=== PATIENT | female | born 1945 | race Caucasian/White ===

== ENCOUNTER → 2018-01-23 11:30 | Outpatient (CLI) | payer MEDICARE, SELFPAY ==
--- NOTE | 2018-01-23 11:42 | XR_ITS ---
XR lumbar spine min 4V COMPARISON: Lumbar spine 02/20/2016 HISTORY: Low back pain TECHNIQUE: AP lateral and oblique views and spot view lumbosacral junction FINDINGS: There is normal curvature. There are pedicle screws at the L3, L4 and L5 levels. There are no connecting metallic brackets for the screws. There are semiopaque spacers at the L3-4 and L4-5 level. There are stable mild anterolisthesis of L4 on L5 unchanged from previous exam in 2016. There is prominent anterior ossific spurring at the T11-12 and T10-11 levels. The SI joints appear normal. IMPRESSION: Postsurgical changes lower lumbar spine as noted
--- NOTE | 2018-01-23 11:42 | XR_ITS ---
XR hip RT 2-3V w/pelvis COMPARISON: None HISTORY: Right hip pain TECHNIQUE: AP pelvis, cone-down AP and frog views right hip FINDINGS: The iliac bones appear intact. There is minor sclerosis of the right SI joint compared to the left. There is minor sclerosis and spurring of the anterior superior iliac spine bilaterally. There is no significant joint space narrowing of either hip. The right femoral head and neck appear intact. There are no soft tissue calcifications around the right hip. There is osseous whiskering matter greater trochanter of both hips. The symphysis pubis is normal. IMPRESSION: Probable mild right sacroiliitis, no significant osteoarthritis of either hip is seen.
== END ==
PROVIDERS: PCP Nurse Practitioner Family; Visit Provider Nurse Practitioner Family
DX: M54.41 Lumbago with sciatica, right side (principal); M25.551 Pain in right hip
CPT/HCPCS: 72110; 73502

== ENCOUNTER → 2018-03-12 09:57 | Outpatient (POV) | payer MEDICARE, SELFPAY | PROVIDERS: Visit Provider Dermatology | DX: Z00.00 Encounter for general adult medical examination without abnormal findings (principal) ==

== ENCOUNTER → 2018-03-31 11:06 | Outpatient (CLI) | payer MEDICARE, SELFPAY ==
--- NOTE | 2018-03-31 11:08 | MR_ITS ---
MR hip RT wo con HISTORY: Right hip and leg pain following injury ITS.REASON: RIGHT HIP PAIN ORDERING PHYSICIAN: Oly Dotson PATIENT AGE: 72 years COMPARISON: None TECHNIQUE: Multiplanar multiecho sequences are performed without contrast. FINDINGS: No evidence of fracture or dislocation. The femoral head and neck have an unremarkable appearance as does the acetabulum. There slight increased T2 signal involving the iliac aspect of the right SI joint nonspecific. There is ill-defined and slightly diffuse increased T2 signal involving the right gluteus medius muscle with a small amount of fluid between the in the muscle plane of the gluteus medius and minimus. There is also slight diffuse increased T2 signal involving the distal aspect of the gluteus medius muscle at its insertion upon the greater trochanter of the femur. A small amount fluid is present along the greater trochanter. Heterogeneous signal intensity involve the distal aspect of the gluteus medius muscle consistent with muscle tear. There is a small amount of edema also at the lesser trochanter may be related to some mild or sinus IMPRESSION: 1. The findings are compatible with a tear of the gluteus medius muscle distally at the insertion upon the greater trochanter 2. Greater trochanteric bursitis and possible bursitis at the lesser trochanter as well 3. No evidence of fracture
== END ==
PROVIDERS: Visit Provider Nurse Practitioner Family
DX: M25.551 Pain in right hip (principal); M54.41 Lumbago with sciatica, right side
CPT/HCPCS: 73721

== ENCOUNTER → 2018-04-15 09:46 | Outpatient (CLI) | payer MEDICARE, SELFPAY ==
--- NOTE | 2018-04-15 09:47 | MM_ITS ---
MM Dig screening mamm BI w/CAD CAD Screening COMPARISON: Digital mammograms with CAD 04/03/2017 and 02/19/2016 INDICATION: There is a history of breast cancer patient maternal aunt and paternal niece. The nipple left breast is inverted but has been for quite some time TECHNIQUE: Standard CC and MLO images were obtained. R2 CAD reviewed. FINDINGS: The breasts are composed primarily of fat with minimal scattered fiber glandular densities in each breast. There are few benign-appearing calcination is in each breast. There is no suspicious lesion and there are no suspicious microcalcifications. IMPRESSION: A type breast parenchyma no suspicious lesion seen BI-RADS Category: 2 Benign Finding(s) RECOMMENDED FOLLOW-UP: 1YR - 1 YEAR FOLLOW-UP (A letter has been sent to the patient regarding results of the study.)
== END ==
PROVIDERS: PCP Nurse Practitioner Family; Visit Provider Nurse Practitioner Obstetrics & Gynecology
DX: Z12.31 Encounter for screening mammogram for malignant neoplasm of breast (principal)
CPT/HCPCS: 77067

== ENCOUNTER 2018-05-28 10:00 | Outpatient (RCR) | payer MEDICARE, SELFPAY ==
--- NOTE | 2018-02-09 11:29 | HMH.PTOPEV ---
Rehab Outpatient Evaluation Rehab OP Evaluation Start: 02/09/18 10:17 Freq: Status: Active Protocol: Document 02/09/18 10:18 CLIF (Rec: 02/09/18 11:29 CLIF [id number]) Electronically Signed By Ryan Argueta, PT 02/09/18 10:18 Outpatient Therapy Subjective History Subjective History Pt reports acute injury to low back on 11/16/17 during a trip /fall. Pt reports R sided LBP with R LE radicular s/s from hip to lateral knee area. Pt reports recent injection and steroid dose pack has improved s/s. Chief Complaint Pain Stiff Paresthesia Symptom Type Ache Sharp Dull Symptoms Relieved By Rest/Positioning OTC Meds Symptoms Aggravated By Standing Bending/Stooping Physical Activity Walking Lifting Prior Functional Limitations None Current Functional Limitations Lifting Housework Standing Walking Bending/Stooping Symptom Description Constant but Variable Level of pain today (0-10) 4 Pain scale - at its best (0-10) 4 Pain scale - at its worst (0-10) 8 Lumbopelvic Eval Posture Thoracic Spine Posture Standing Position Neutral Lumbar Spine Posture Standing Position Neutral Assistive device Assistive Devices None / NA Gait Observation General Gait Pattern Observation No Deviations/Normal Palapation tenderness right paraspinal tenderness Yes: 3/4 buttock tenderness Yes: 3/4 Lumbar/Sacral Palpation Findings Tenderness Accessory Movement L5 right Range of Motion Lumbar Spine Active Flexion Range of 0-50 Motion (degrees) Lumbar Spine Active Extension Range of 0-20 Motion (degrees) Left Lumbar Spine Lateral Flexion Active 0-20 Range of Motion (degrees) Right Lumbar Spine Lateral Flexion 0-20 Active Range of Motion (degrees) Lumbar Spine ROM Limitations Pain Manual Muscle Test Bilateral Knee Extension Strength Grade 5 Normal Knee Flexion Strength Grade 4 Good Hip Flexion Strength Grade 4 Good Extensor Hallucis Longus Strength Grade 5 Normal Ankle Dorsiflexion Strength Grade 5 Normal Gastronemius/Soleus Strength Grade 5 N
--- NOTE | 2018-05-21 11:25 | HMH.PTOPEV ---
PT Outpatient Evaluation Rehab PT Outpatient Evaluation Start: 02/09/18 10:17 Freq: Status: Active Protocol: Document 02/09/18 10:18 CLIF (Rec: 02/09/18 11:29 CLIF [id number]) Electronically Signed By Ryan Argueta, PT 02/09/18 10:18 Outpatient Therapy Subjective History Subjective History Pt reports acute injury to low back on 11/16/17 during a trip /fall. Pt reports R sided LBP with R LE radicular s/s from hip to lateral knee area. Pt reports recent injection and steroid dose pack has improved s/s. Chief Complaint Pain Stiff Paresthesia Symptom Type Ache Sharp Dull Symptoms Relieved By Rest/Positioning OTC Meds Symptoms Aggravated By Standing Bending/Stooping Physical Activity Walking Lifting Prior Functional Limitations None Current Functional Limitations Lifting Housework Standing Walking Bending/Stooping Symptom Description Constant but Variable Level of pain today (0-10) 4 Pain scale - at its best (0-10) 4 Pain scale - at its worst (0-10) 8 Lumbopelvic Eval Posture Thoracic Spine Posture Standing Position Neutral Lumbar Spine Posture Standing Position Neutral Assistive device Assistive Devices None / NA Gait Observation General Gait Pattern Observation No Deviations/Normal Palapation tenderness right paraspinal tenderness Yes: 3/4 buttock tenderness Yes: 3/4 Lumbar/Sacral Palpation Findings Tenderness Accessory Movement L5 right Range of Motion Lumbar Spine Active Flexion Range of 0-50 Motion (degrees) Lumbar Spine Active Extension Range of 0-20 Motion (degrees) Left Lumbar Spine Lateral Flexion Active 0-20 Range of Motion (degrees) Right Lumbar Spine Lateral Flexion 0-20 Active Range of Motion (degrees) Lumbar Spine ROM Limitations Pain Manual Muscle Test Bilateral Knee Extension Strength Grade 5 Normal Knee Flexion Strength Grade 4 Good Hip Flexion Strength Grade 4 Good Extensor Hallucis Longus Strength Grade 5 Normal Ankle Dorsiflexion Strength Grade 5 Normal Gastronemius/Soleus Strength Grade 5 Norm
== END 2018-05-28 10:01 | disposition home or self-care (01) ==
LOC: PT 10:00
PROVIDERS: PCP Nurse Practitioner Family; Visit Provider Nurse Practitioner Family
DX: M46.1 Sacroiliitis, not elsewhere classified (principal)
CPT/HCPCS: 97010; 97012; 97014; 97033; 97035; 97110; 97140; 97163; 97164; G0283

== ENCOUNTER → 2018-08-24 09:56 | Outpatient (POV) | payer MEDICARE, SELFPAY | PROVIDERS: Visit Provider Specialist | DX: R20.2 Paresthesia of skin (principal) | CPT/HCPCS: 95886; 95909 ==

== ENCOUNTER → 2018-12-08 14:02 | Outpatient (CLI) | payer MEDICARE, SELFPAY ==
--- NOTE | 2018-12-08 14:09 | XR_ITS ---
XR hip RT 2-3V w/pelvis HISTORY: ITS.REASON: BILAT HIP PAIN ORDERING PHYSICIAN: Oly Dotson PATIENT AGE: 73 years COMPARISON: 01/23/2018 FINDINGS: The hip joint space is well-preserved. No fracture or dislocation is evident. There are mild osteoarthritic changes of the right SI joint as before. Postsurgical changes are present in the lower lumbar spine. No lytic or blastic change. IMPRESSION: Mild osteoarthritic change of the right SI joint. Overall no change with no acute finding
--- NOTE | 2018-12-08 14:23 | XR_ITS ---
XR hip LT 2-3V w/pelvis HISTORY: ITS.REASON: HIP PAIN ORDERING PHYSICIAN: Oly Dotson PATIENT AGE: 73 years COMPARISON: None FINDINGS: No fracture or dislocation is evident. No significant degenerative change. No lytic or blastic change. Unremarkable soft tissues IMPRESSION: Negative left hip
== END ==
PROVIDERS: PCP Nurse Practitioner Family; Visit Provider Nurse Practitioner Family
DX: M25.552 Pain in left hip (principal); M25.551 Pain in right hip
CPT/HCPCS: 73502

== ENCOUNTER → 2018-12-18 10:08 | Outpatient (CLI) | payer MEDICARE, SELFPAY ==
--- NOTE | 2018-12-18 11:13 | CT_ITS ---
CT abdomen pelvis w con CLINICAL INDICATION: Lower abdominal pain and discomfort ITS.REASON: LOWER ABD PAIN ORDERING PHYSICIAN: Oly Dotson PATIENT AGE: 73 years COMPARISON: 02/23/2013 TECHNIQUE: Axial images obtained with sagittal and coronal reformats. All CT scans at the facility use one or more dose reduction, viz: automated exposure control, ma/kV adjustment per patient size (including targeted exams where dose is matched to indication, i.e. head), or iterative reconstruction technique. PROCEDURE: Oral Contrast: Redicat IV Contrast: 75 mL's Optiray 350. FINDINGS: No acute finding in the lung bases. There is a 5 mm noncalcified nodule in right middle lobe nonspecific. Coronary artery calcifications are present. Mild diffuse fatty liver infiltration. No focal liver lesions. Postcholecystectomy change with biliary ectasia. The common bile duct measures up to 1 cm. This was present on 02/22/2013. The spleen, adrenal glands, pancreas, and kidneys have an unremarkable appearance. No renal or ureteral calculi. No intestinal obstruction or free air. The appendix is not clearly delineated. There is no evidence of appendicitis. There is a tiny umbilical hernia which contains fat. No intestinal structure free air. There has been prior hysterectomy. No pelvic mass or abnormal fluid collection is evident. There are postsurgical changes of the lumbar spine with interpedicular screws at L3, L4, and L5. IMPRESSION: 1. No acute abdominal or pelvic findings. 2. Prior cholecystectomy and hysterectomy. 3. 5 mm nodule is nonspecific. Consider 12 month follow-up to confirm stability.
== END ==
PROVIDERS: PCP Nurse Practitioner Family; Visit Provider Nurse Practitioner Family
DX: R10.30 Lower abdominal pain, unspecified (principal)
CPT/HCPCS: 74177; Q9967

== ENCOUNTER → 2019-02-02 10:07 | Outpatient (CLI) | payer MEDICARE, SELFPAY ==
--- NOTE | 2019-02-02 10:14 | XR_ITS ---
EXAM: XR lumbar spine min 4V HISTORY: ITS.REASON: MUSCLE SPASM OF RT LOWER EXT,S/P LUMBAR DISCECTOMY ORDERING PHYSICIAN: Oly Dotson APRN PATIENT AGE: 73 years COMPARISON: 01/23/2018 FINDINGS: Interpedicular screws remain in place at L3-L4 and L5 with disc spacers at L3-L4 and L4-L5. There is multilevel degenerative disc disease from T11 to S1. There is minimal anterolisthesis of L4 on L5 of 2 to 3 mm. No acute fracture or dislocation evident. Prominent anterior osteophytes are present at T10-T11 and T12 and at L2 and L3 and L4. No fracture or dislocation. IMPRESSION: Postsurgical and degenerative changes which are not significant change compared to 01/23/2018
== END ==
PROVIDERS: PCP Nurse Practitioner Family; Visit Provider Nurse Practitioner Family
DX: M62.838 Other muscle spasm (principal); M54.16 Radiculopathy, lumbar region; Z98.890 Other specified postprocedural states
CPT/HCPCS: 72110

== ENCOUNTER → 2019-02-11 15:49 | Outpatient (CLI) | payer MEDICARE, SELFPAY ==
--- NOTE | 2019-02-11 15:57 | XR_ITS ---
XR chest 2V HISTORY: ITS.REASON: COUGH ORDERING PHYSICIAN: Oly Dotson APRN PATIENT AGE: 73 years COMPARISON: None FINDINGS: There is mild cardiomegaly without failure.. The lungs are clear without infiltrates, suspicious nodules, or pleural effusions. There are few scattered granulomas present. Degenerative change thoracic spine. IMPRESSION: No acute finding Mild cardiomegaly
== END ==
PROVIDERS: PCP Family Medicine; Visit Provider Nurse Practitioner Family
DX: R05 Cough (principal)
CPT/HCPCS: 71046

== ENCOUNTER → 2019-04-30 10:05 | Outpatient (CLI) | payer MEDICARE, SELFPAY ==
--- NOTE | 2019-04-30 10:11 | MM_ITS ---
MM Dig screening mamm BI w/CAD ORDERING PHYSICIAN : Oly Dotson APRN PATIENT AGE: 73 years GENDER: Female COMPARISON: March 2017, April 2018, February 2016 bilateral digital mammogram studies INDICATION: I.Routine: SCREENING mammogram. No new complaints Uses Estrogen cream twice a week. Family history. Paternal aunt and paternal niece with breast cancer TECHNIQUE: Standard CC and MLO images were obtained. R2 CAD reviewed. FINDINGS: Overall lower density breast with moderate generalized fatty replacement most evident throughout the deep breast bilaterally. There are Mild/ Moderate residual fibroglandular elements most evident at retroareolar regions bilaterally with minor asymmetry. Overall Stable breast pattern bilaterally compared to prior study with no new suspicious or dominant mass. No suspicious calcifications. Bilateral follow-up in one year recommended. RIGHT BREAST:No new areas of concern LEFT BREAST no new areas of concern :Stable Residual fibroglandular elements are slightly more evident left retroareolar region and right but this appearance is unchanged ...........IMPRESSION: ................ Stable bilateral mammogram . Bilateral follow-up in one year BI-RADS Category: 1 Negative RECOMMENDED FOLLOW-UP: 1YR 1 YEAR FOLLOW-UP (A letter has been sent to the patient regarding results of the study.)
== END ==
PROVIDERS: PCP Family Medicine; Visit Provider Nurse Practitioner Family
DX: Z12.31 Encounter for screening mammogram for malignant neoplasm of breast (principal)
CPT/HCPCS: 77067

== ENCOUNTER → 2019-05-13 07:58 | Outpatient (CLI) | payer MEDICARE, SELFPAY ==
--- NOTE | 2019-05-13 08:01 | MR_ITS ---
MR hip RT wo con HISTORY: Right hip and buttock pain extending into the right leg in the ITS.REASON: RIGHT HIP PAIN, MUSCLE TEAR ORDERING PHYSICIAN: Oly Dotson APRN PATIENT AGE: 73 years COMPARISON: 12/18/2018, 03/31/2018 TECHNIQUE: Multiplanar multiecho sequences are performed without contrast. FINDINGS: Previous MRI demonstrated a tear of the gluteus medius muscle with greater trochanteric bursitis on the right. Previously noted area of increased T2 signal involving the right gluteus medius muscle has resolved. The diffuse increased signal intensity along the right greater trochanter has resolved as well. There is some increased T2 signal along the left greater trochanter suggesting left-sided trochanteric bursae this. No hip fracture or dislocation is evident. No evidence of avascular necrosis. No fracture or dislocation. IMPRESSION: 1. Overall there is been interval improvement with resolved abnormal signal intensity within the right gluteus medius muscle and along the greater trochanter on the right. 2. There is suggestion of greater trochanteric bursitis on the left
== END ==
PROVIDERS: PCP Family Medicine; Visit Provider Nurse Practitioner Family
DX: M25.551 Pain in right hip (principal); T14.8XXA Other injury of unspecified body region, initial encounter
CPT/HCPCS: 73721

== ENCOUNTER → 2019-05-25 10:23 | Outpatient (POV) | payer MEDICARE, SELFPAY | PROVIDERS: Visit Provider Dermatology | DX: Z00.00 Encounter for general adult medical examination without abnormal findings (principal) ==

== ENCOUNTER 2019-05-27 14:00 | Outpatient (RCR) | payer MEDICARE, SELFPAY ==
--- NOTE | 2019-03-29 09:51 | HMH.PTOPEV ---
PT Outpatient Evaluation Rehab PT Outpatient Evaluation Start: 03/29/19 09:38 Freq: Status: Active Protocol: Document 03/29/19 09:39 STEFANCHING (Rec: 03/29/19 09:51 LEDA [id number]) Electronically Signed By Kranthi Ghotra PT 03/29/19 09:39 Outpatient Therapy Subjective History Subjective History This is the initial Physical Therapy evaluation for Chrissy Estes. Pt is a 73 y/o female referred to PT for c/o RLE pain. Pt reports she has had pain in post RLE from buttocks to popliteal space since fall in 2016. Pt reprots multilevel spinal fusion 2015. Pt reports this bout of pain began ~ 4 months ago. Pt reports she went to [place] had steroid injxn and pain decreased. Pt reports she went to beach and did a lot of walking and upon return she had significant increase in pain. Chief Complaint Pain,Stiff Symptom Type Ache,Throb,Sharp,Dull Symptoms Relieved By Rest/Positioning,Heat,Ice Symptoms Aggravated By Sitting,Standing,Bending/ Stooping,Walking,Lifting, Sneeze/Coughing Prior Functional Limitations None Current Functional Limitations Housework,Driving,Sleeping, Standing,Squatting,Recreation Activity,Walking,Stairs, Bending/Stooping Symptom Description Constant but Variable Level of pain today (0-10) 3 Pain scale - at its best (0-10) 2 Pain scale - at its worst (0-10) 8 Lumbopelvic Eval Posture Thoracic Spine Posture Standing Position Neutral Lumbar Spine Posture Standing Position Neutral Assistive device Assistive Devices None / NA Palapation tenderness right lumbar spinal tenderness Yes paraspinal tenderness Yes buttock tenderness Yes Lumbar/Sacral Palpation Findings Tenderness,Spasm,Muscle Guarding Lumbar/Sacral Palpation Overall Comment TTP along sciatic distribution and piriformis Accessory Movement L4 right L5 right Range of Motion Lumbar Spine Active Flexion Range of 30 Motion (degrees) Lumbar Spine Active Extension Range of 20 Motion (degrees) Left Lumbar Spine Lateral F
== END 2019-05-27 14:05 | disposition home or self-care (01) ==
LOC: PT 14:00
PROVIDERS: Visit Provider Nurse Practitioner Family
DX: M25.551 Pain in right hip (principal); M70.61 Trochanteric bursitis, right hip
CPT/HCPCS: 97010; 97014; 97033; 97035; 97110; 97140; 97163; 97164; G0283

== ENCOUNTER → 2019-06-04 13:33 | Outpatient (CLI) | payer MEDICARE, SELFPAY ==
--- NOTE | 2019-06-04 13:34 | MR_ITS ---
PROCEDURE: MR LUMBAR SPINE WO CON CLINICAL INDICATION: LUMBAR BACK PAIN W/ RADICULOPATHY, HX OF LUMBAR DISCECTOMY Low back pain with right lower extremity and buttock pain, prior discectomy COMPARISON: [id number] XR lumbar spine min 4V from 01/23/2018 TECHNIQUE: Standard multiplanar multiecho sequences are performed without contrast. 3-D MIP and myelographic images are also rendered and reviewed FINDINGS: The spinal cord ends at the L1 level. There are postsurgical changes as described below. T10-T11: Mild degenerative disc disease. T11-T12: Degenerate disc disease. T12-L1: Minimal right paracentral disc protrusion without impingement. L1-L2: Minimal bulging disc. Minimal retrolisthesis of L1 on L2 on L2-1 to 2 mm. Mild facet ligamentum hypertrophy L2-L3: Mild bulging disc with mild facet ligamentum hypertrophy with mild bilateral lateral recess and foraminal narrowing. L3-L4: There inter pedicular screws at L3 and L4 with postlaminectomy changes and degenerative disc disease. L4-5: Post laminectomy changes with inter pedicular screws. 4 mm anterolisthesis of L4. The there is a 3 x 2.4 x 3.9 cm fluid collection posterior to the spinal canal at L4 and L5. This does contain some internal septations consistent with a postsurgical fluid collection such as a seroma. There is moderate right-sided foraminal narrowing at this level L5-S1: Degenerative disc disease with bulging disc with facet and ligamentum hypertrophy. There is severe left foraminal narrowing IMPRESSION: 1. Postsurgical changes with inter pedicular screws at L3, L4, at L5. 2. Loculated fluid collection is present posterior to the canal at L4 and L5 and may represent a postsurgical seroma. An abscess is felt to be less likely but not entirely excluded. Please correlate with clinical parameters. 3. Multilevel degenerative changes as detailed above. There is severe left-sided foraminal narrowing at L5-S1 and moderate right foraminal narrowing at L4-L5. Please see above for detailed description Dictated by: Raymond Sibley MD 06/05/2019 17:49 Signed by: <Electronically signed by Raymond Sibley MD in [facility]> 06/08/2019 07:07
== END ==
PROVIDERS: Visit Provider Nurse Practitioner Family
DX: M54.16 Radiculopathy, lumbar region (principal); Z98.890 Other specified postprocedural states
CPT/HCPCS: 72148; 76376

== ENCOUNTER → 2019-07-01 10:46 | Outpatient (CLI) | payer MEDICARE, SELFPAY ==
--- NOTE | 2019-07-01 10:47 | US_ITS ---
PROCEDURE: US TRANSVAGINAL CLINICAL INDICATION: us t/v- abnormal bleeding Abnormal bleeding after intercourse COMPARISON: No exams were available for comparison FINDINGS: UTERUS: Surgically absent LEFT OVARY: Not demonstrated RIGHT OVARY: Not demonstrated The vaginal cuff has an unremarkable appearance. No pelvic fluid collections evident. IMPRESSION: The uterus and ovaries are not identified and presumed surgically absent. The vaginal cuff has an unremarkable appearance. No obvious pelvic mass or abnormal fluid collection Dictated by: Raymond Sibley MD 07/01/2019 18:00 Electronically signed by Raymond Sibley MD in [facility] 07/01/2019 18:00
== END ==
PROVIDERS: PCP Nurse Practitioner Family; Visit Provider Nurse Practitioner Obstetrics & Gynecology
DX: N93.9 Abnormal uterine and vaginal bleeding, unspecified (principal)
CPT/HCPCS: 76830

== ENCOUNTER → 2019-07-09 13:23 | Outpatient (CLI) | payer MEDICARE, SELFPAY ==
--- NOTE | 2019-07-09 13:25 | CT_ITS ---
PROCEDURE: CT CHEST WO CON CLINICAL INDICATION: RT PULMONARY NODULE COMPARISON: CT of the abdomen from 12/18/2018 which showed some of the lung clifton. TECHNIQUE: Axial images obtained with sagittal and coronal reformats. All CT scans at the facility use one or more dose reduction, viz: automated exposure control, ma/kV adjustment per patient size (including targeted exams where dose is matched to indication, i.e. head), or iterative reconstruction technique. FINDINGS: HEART: Unremarkable. Normal heart size. No significant pericardial effusion. MEDIASTINAL AND HILAR STRUCTURES: No mediastinal or hilar mass evident. No dominant adenopathy. PULMONARY ARTERIES: Intravenous contrast was not utilized and therefore pulmonary emboli cannot be ruled out. AORTA: Unremarkable however intravenous contrast was not utilized and there are a few small wall calcified plaques. LUNGS:The previously described punctate 5 millimeter nodule in the study related to the right middle lobe is calcified. There are no suspicious noncalcified nodules. Lungs are clear. PLEURAL SPACES: No significant effusion. No evidence of pneumothorax. BONY STRUCTURES: No acute bony abnormalities apparent. LYMPH NODES: No enlarged lymph nodes evident. UPPER ABDOMEN: Liver is lower density compared to the spleen. ADDITIONAL FINDINGS: No other significant abnormalities. IMPRESSION: Right middle lobe 5 millimeter nodule is a benign calcified granuloma. No acute process. Hepatic steatosis. Dictated by: Brooks Elder 07/09/2019 14:25 Electronically signed by Brooks Elder in [facility] 07/09/2019 14:25
== END ==
PROVIDERS: PCP Nurse Practitioner Family; Visit Provider Nurse Practitioner Family
DX: R91.1 Solitary pulmonary nodule (principal)
CPT/HCPCS: 71250

== ENCOUNTER → 2020-02-21 11:26 | Outpatient (CLI) | payer MEDICARE, SELFPAY ==
--- NOTE | 2020-02-21 11:38 | XR_ITS ---
PROCEDURE: XR CHEST 2V CLINICAL HISTORY: CHEST WALL PAIN Left-sided chest pain COMPARISON: CXR2V XR chest 2V from 02/11/2019 CT CHEST WO CON from 07/09/2019 FINDINGS: The cardiomediastinal silhouette and pulmonary vascularity are within normal limits. The lungs are clear without infiltrates, suspicious nodules, or pleural effusions. Degenerative changes thoracic IMPRESSION: No change no acute finding Dictated by: Raymond Sibley MD 02/21/2020 13:19 Electronically signed by Raymond Sibley MD in [facility] 02/21/2020 13:19
== END ==
PROVIDERS: PCP Nurse Practitioner Family; Visit Provider Nurse Practitioner Family
DX: R07.89 Other chest pain (principal)
CPT/HCPCS: 71046

== ENCOUNTER → 2020-03-21 14:16 | Outpatient (POV) | payer MEDICARE, SELFPAY | PROVIDERS: PCP Nurse Practitioner Family; Visit Provider Physician Assistant | DX: Z00.00 Encounter for general adult medical examination without abnormal findings (principal) ==

== ENCOUNTER → 2020-04-11 09:48 | Outpatient (CLI) | payer MEDICARE, SELFPAY ==
--- NOTE | 2020-04-11 09:49 | MM_ITS ---
PROCEDURE: MM DIG SCREENING MAMM BI W/CAD DIGITAL BREAST TOMOSYNTHESIS INCLUDED Patient Age:74Y CLINICAL INDICATION: screening xmg 74-year-old no hormones no new complaints Family history paternal aunt and paternal niece with breast cancer COMPARISON: [facility] DIG MAMM-SCREEN GURMEET from 02/08/2014 [facility] DIG MAMM-SCREEN GURMEET from 02/15/2015 [facility] DIG MAMM-SCREEN GURMEET from 02/19/2016 [facility] DIG MAMM-SCREEN GURMEET W/CAD from 04/03/2017 [facility] MM Dig screening mamm BI w/CAD from 04/15/2018 DIG MAMM-SCREEN GURMEET from 04/30/2019 TECHNIQUE: Standard CC and MLO images were obtained. R2 CAD reviewed. Bilateral digital breast tomosynthesis included. Additional nipple profile views right breast included FINDINGS: [id number] residual fibroglandular elements most evident anterior breast towards upper-outer quadrant.. No new dominant mass nor suspicious density of concern.. No suspicious calcifications either breast.. CAD computer review highlights benign-appearing vascular calcifications bilaterally Right breast:. Stable mammogram. No new areas of concern Stable areas of minor asymmetry. Specifically subtle small area asymmetric density in the deep breast on MLO view is been seen multiple previous studies. Can be followed Left breast: No new findings... Bilateral follow-up 1 year recommended IMPRESSION: Stable bilateral mammogram. Bilateral follow-up 1 year recommended BI-RAD Category: 1 Negative FOLLOW-UP: 1YR 1 Year Follow-up the (A letter has been sent to the patient regarding results of the study.) Dictated by: Darrion Britton MD 04/16/2020 20:52 Electronically signed by Darrion Britton MD in [place] 04/16/2020 20:52
== END ==
PROVIDERS: PCP Nurse Practitioner Family; Visit Provider Nurse Practitioner Obstetrics & Gynecology
DX: Z12.31 Encounter for screening mammogram for malignant neoplasm of breast (principal)
CPT/HCPCS: 77063; 77067

== ENCOUNTER → 2020-07-14 11:48 | Outpatient (CLI) | payer MEDICARE, SELFPAY ==
--- NOTE | 2020-07-14 11:53 | XR_ITS ---
PROCEDURE: XR LUMBAR SPINE MIN 4V CLINICAL INDICATION: LUMBAGO W/SCIATICA COMPARISON: CR AFU ABDOMEN-FLAT UPRIGHT from 12/17/2014 CR LS5 LUMBAR SPINE 5 VIEWS from 02/20/2016 CR [id number] XR lumbar spine min 4V from 01/23/[id number] abdomen pelvis w con from 12/18/2018 FINDINGS: Postsurgical changes of the lumbar spine with inter pedicular screws at L3-L4 and L5 with translucent connecting adam. There is 5 mm anterolisthesis of L4 on L5. Degenerative disc disease is present at every level. There is 4 mm retrolisthesis of L2 on L3 and L1 on L2. No acute fracture or dislocation. Facet hypertrophic changes are present from L3-S1. There is mild wedging of T12 which appears chronic with anterior osteophytes. IMPRESSION: Postsurgical changes with lumbar spondylosis as described above. Dictated by: Raymond Sibley MD 07/14/2020 12:49 Raymond Sibley MD in [facility] 07/14/2020 12:49
--- NOTE | 2020-07-14 11:53 | XR_ITS ---
PROCEDURE: XR SHOULDER RT MIN 2V CLINICAL INDICATION: RT SHOULDER PAIN COMPARISON: CR [id number] [id number] from 12/25/2016 FINDINGS: There are mild osteoarthritic changes of the acromioclavicular and glenohumeral joint. No acute fracture or dislocation. No lytic or blastic change. Other findings:None. IMPRESSION: Mild osteoarthritis. Dictated by: Raymond Sibley MD 07/14/2020 12:52 Raymond Sibley MD in [place] 07/14/2020 12:52
== END ==
PROVIDERS: PCP Nurse Practitioner Family; Visit Provider Nurse Practitioner Family
DX: M25.511 Pain in right shoulder (principal); M54.41 Lumbago with sciatica, right side
CPT/HCPCS: 72110; 73030

== ENCOUNTER → 2020-10-11 10:32 | Outpatient (CLI) | payer MEDICARE, SELFPAY ==
--- NOTE | 2020-10-11 10:38 | XR_ITS ---
PROCEDURE: XR HIP LT 2-3V W/PELVIS CLINICAL INDICATION: LT HIP PAIN COMPARISON: CR HIPCMLT XR hip LT 2-3V w/pelvis from 12/08/2018 FINDINGS: There are postsurgical changes of the lower lumbar spine. Mild osteoarthritic changes are present involving the hips. No fracture or dislocation. No lytic or blastic change. There is mild hyperostosis along the greater tuberosity. There is also mild hyperostosis at the iliac crest and anterior superior iliac spine. IMPRESSION: Degenerative changes, no acute finding Dictated by: Raymond Sibley MD 10/11/2020 18:22 Raymond Sibley MD in [facility] 10/11/2020 18:22
== END ==
PROVIDERS: PCP Nurse Practitioner Family; Visit Provider Nurse Practitioner Family
DX: M25.552 Pain in left hip (principal)
CPT/HCPCS: 73502

== ENCOUNTER → 2020-10-13 14:08 | Outpatient (CLI) | payer MEDICARE, SELFPAY ==
--- NOTE | 2020-10-13 14:10 | MR_ITS ---
PROCEDURE: MR LUMBAR SPINE WO CON CLINICAL INDICATION: LUMBAGO WITH SCIATICA, RIGHT SIDE Low back pain, pain down left leg. Numbness and toe COMPARISON: MR MR LUMBAR SPINE WO CON from 06/04/2019 CR XR LUMBAR SPINE MIN 4V from 07/14/2020 TECHNIQUE: Standard multiplanar multiecho sequences are performed without contrast. 3-D MIP and myelographic images are also rendered and reviewed FINDINGS: The spinal cord ends at the L1 level. T10-T11 and T12-L1 an unremarkable appearance. L1-L2: Minimal bulging disc with mild facet and ligamentum hypertrophy. 2 mm retrolisthesis of L1. L2-L3: Degenerative disc disease with mild bulging disc. L3-L4: Prior posterior laminectomy with inter pedicular screws at L3-L4 and L5. L4-5: Artifact from the inter pedicular screws. There is 4 mm anterolisthesis of L4. L5-S1: Degenerative disc disease with bulging disc and facet and ligamentum hypertrophy. There is severe left-sided foraminal narrowing. There is a posterior postsurgical fluid collection epicentered at L4 measuring 4 cm cephalad caudad, 2.8 cm AP and to 3.7 cm transverse. Septations are present within this collection. This is posterior to the thecal sac and consistent with a postoperative seroma. This is not significantly changed. IMPRESSION: 1. Overall no change in the postsurgical changes and lumbar spondylosis. Please see above for detailed description at each level. 2. Postsurgical fluid collection posterior to the thecal sac epicentered at L4 consistent with postsurgical seroma unchanged Dictated by: Raymond Sibley MD 10/14/2020 11:58 Raymond Sibley MD in [facility] 10/14/2020 11:58
== END ==
PROVIDERS: PCP Nurse Practitioner Family; Visit Provider Nurse Practitioner Family
DX: M54.41 Lumbago with sciatica, right side (principal); M51.26 Other intervertebral disc displacement, lumbar region
CPT/HCPCS: 72148; 76376

== ENCOUNTER → 2020-12-19 15:58 | Outpatient (CLI) | payer MEDICARE, SELFPAY ==
[2020-12-19 18:54] LABS: Blood Urea Nitrogen 41 mg/dl (7-17); Estimated Glomerular Filt Rate 37 ml/min (>60); GFR (African American) 44 ML/MIN (>60)
== END ==
PROVIDERS: Visit Provider Nurse Practitioner Family
DX: Z01.818 Encounter for other preprocedural examination (principal); R91.1 Solitary pulmonary nodule
CPT/HCPCS: 36415; 82565; 84520

== ENCOUNTER → 2020-12-22 09:57 | Outpatient (CLI) | payer MEDICARE, SELFPAY ==
--- NOTE | 2020-12-22 10:00 | CT_ITS ---
PROCEDURE: CT CHEST WO CON CLINICAL INDICATION: RT PULMONARY NODULE Follow-up pulmonary nodule COMPARISON: CT ABDPELW CT abdomen pelvis w con from 12/18/[address] CHEST WO CON from 07/09/2019 TECHNIQUE: Axial images obtained with sagittal and coronal reformats. All CT scans at the facility use one or more dose reduction, viz: automated exposure control, ma/kV adjustment per patient size (including targeted exams where dose is matched to indication, i.e. head), or iterative reconstruction technique. FINDINGS: HEART AND MEDIASTINAL STRUCTURES: Coronary artery calcification noted. Small mediastinal lymph nodes unchanged LUNGS AND PLEURAL SPACES: Calcified granuloma right middle lobe unchanged. 3 mm noncalcified nodule right middle lobe image 39 series 3 unchanged. Calcified left perihilar nodule unchanged. No new nodules apparent. BONY STRUCTURES: Degenerative changes thoracic spine UPPER ABDOMEN: Fatty liver. Prior cholecystectomy ADDITIONAL FINDINGS: No other significant abnormalities. IMPRESSION: Stable CT appearance of the chest. No suspicious nodules apparent. Please see above for detail Dictated by: Raymond Sibley MD 12/23/2020 10:42 Raymond Sibley MD in [facility] 12/23/2020 10:42
== END ==
PROVIDERS: PCP Nurse Practitioner Family; Visit Provider Nurse Practitioner Family
DX: R91.1 Solitary pulmonary nodule (principal)
CPT/HCPCS: 71250

== ENCOUNTER → 2021-02-09 11:43 | Outpatient (CLI) | payer MEDICARE, SELFPAY ==
--- NOTE | 2021-02-09 11:51 | XR_ITS ---
PROCEDURE: XR FOOT WT BEARING LT 3V CLINICAL INDICATION: pain Left foot pain COMPARISON: No exams were available for comparison FINDINGS: No fracture or dislocation. No lytic or blastic change. There is normal mineralization. There is mild pes planus. Mild osteoarthritic changes are present at the navicular cuneiform and tarsal metatarsal junction. There is a mildly prominent calcaneal spur with some mild ossification deep to the spur. There are mild degenerative changes of the posterior subtalar joint with a mildly prominent posterior talar process. Other findings:None. IMPRESSION: Degenerative changes as described above with pes planus Dictated by: Raymond Sibley MD 02/09/2021 12:16 Raymond Sibley MD in [facility] 02/09/2021 12:16
--- NOTE | 2021-02-09 11:51 | XR_ITS ---
PROCEDURE: XR FOOT WT BEARING RT 3V CLINICAL INDICATION: pain COMPARISON: No exams were available for comparison FINDINGS: No fracture or dislocation. No lytic or blastic change. There is normal mineralization. Minimal osteoarthritic changes 1st metatarsophalangeal joint with borderline pes planus. Mild osteoarthritic change at the navicular cuneiform joint. Mild osteoarthritic change posterior subtalar joint with mildly prominent posterior talar process Other findings:There is some bony fragmentation at the distal aspect of a small calcaneal spur. IMPRESSION: Borderline pes planus with degenerative changes as described above. Dictated by: Raymond Sibley MD 02/09/2021 12:17 Raymond Sibley MD in [facility] 02/09/2021 12:17
== END ==
PROVIDERS: PCP Nurse Practitioner Family; Referring Provider Nurse Practitioner Family; Visit Provider Podiatrist
DX: M79.671 Pain in right foot (principal); M79.672 Pain in left foot
CPT/HCPCS: 73630

== ENCOUNTER → 2021-02-16 11:30 | Outpatient (CLI) | payer MEDICARE, SELFPAY ==
[2021-02-16 12:45] LABS: Blood Urea Nitrogen 37 mg/dl (7-17); Estimated Glomerular Filt Rate 29 ml/min (>60); GFR (African American) 36 ML/MIN (>60)
== END ==
PROVIDERS: Visit Provider Nurse Practitioner Family
DX: R10.12 Left upper quadrant pain (principal)
CPT/HCPCS: 36415; 82565; 84520

== ENCOUNTER → 2021-02-21 08:33 | Outpatient (CLI) | payer MEDICARE, SELFPAY ==
--- NOTE | 2021-02-21 09:05 | CT_ITS ---
PROCEDURE: CT ABDOMEN WO CON CLINICAL HISTORY: LUQ PAIN COMPARISON: CT ABDPELW/O CT ABD PELVIS W/O CONTRAST from 12/16/2014 TECHNIQUE: Axial images obtained with sagittal and coronal reformats. All CT scans at the facility use one or more dose reduction, viz: automated exposure control, ma/kV adjustment per patient size (including targeted exams where dose is matched to indication, i.e. head), or iterative reconstruction technique. FINDINGS: Coronary artery calcifications are present. Fatty liver. No obvious focal liver lesion. There has been a prior cholecystectomy. There are 2 small hyperdensities in the cholecystectomy site and could be due to small stones within the cystic duct or hyperdense sutures. Common bile duct is slightly prominent at 9 mm but could be due to reservoir fact from the prior cholecystectomy. This is not significantly changed. The spleen and adrenal glands and pancreas has an unremarkable appearance. No renal or ureteral calculi. No hydronephrosis. The stomach and visualized portions of the colon have an unremarkable appearance. No intestinal obstruction or free air. There is extensive postsurgical change of the lumbar spine with artifact from the inter pedicular screws at L3, L4, and L5. There is anterolisthesis of L4 on L5 of 7 mm. Laminectomy defect present at L3-L4 and L5. IMPRESSION: 1. No acute finding. Specifically, no findings that would explain patient's left upper quadrant pain. 2. Numerous nonemergent findings as detailed above. Dictated by: Raymond Sibley MD 02/22/2021 10:04 Raymond Sibley MD in [facility] 02/22/2021 10:04
== END ==
PROVIDERS: PCP Nurse Practitioner Family; Visit Provider Nurse Practitioner Family
DX: R10.12 Left upper quadrant pain (principal)
CPT/HCPCS: 74150

== ENCOUNTER → 2021-03-06 06:10 | Outpatient (CLI) | payer MEDICARE, SELFPAY ==
--- NOTE | 2021-03-06 06:12 | CA_ITS ---
APPROVED REPORT EXAM: Comprehensive 2D, Doppler, and color-flow Echocardiogram Swatcher: Minal Gonzalez RVT Ht: 5 ft 2 in Wt: 160lbs BSA: 1.74 BP: 157/60 mmHg Indications: CP,HTN,HLD,GERD,CORONARY CALCIFICATION CORONARY ART ON CT,BRADYCARDIA 2D Dimensions LVOT 1.70 cm (M/F) 1.5-2.5 LA Volume 37.40 mL LA Volume Index 21.49 mL/m2 (M/F) 16-34 M-Mode Dimensions RVDd 2.27 cm (0.9-2.6) LA Diam 4.04 cm (1.9-4.0) LVDd 4.74 cm (3.5-5.7) Ao Diam 2.88 cm (2.0-3.7) LVDs 3.20 cm (3.5-5.7) IVSd 0.64 cm (0.6-1.1) PWd 0.58 cm (0.6-1.1) EF (Teich) 60.70% FS 32.50% EDV (Teich) 104.40 mL TAPSE 2.44 (<1.7) ESV (Teich) 41.00 mL LV Diastology E Decel Time 163.00 (160-240 msec) E/A Ratio 1.0 MED E' 5.70 (< 7 cm/sec) E'/MED E' Ratio 15.89 (>14) LAT E' 7.00 (<10 cm/sec) E/LAT E' Ratio 12.94 (>14) Aortic Valve AO Peak GR. 5.20 mmHg Mitral Valve MV E Max Sven. 91.00 (40-130 cm/s) MV A Velocity 88.00 (40-130 cm/s) E/A Ratio 1.03 MV Decel. Time 163.00 (160-240 ms) MV PHT 48.00 ms Pulmonary Valve PV Peak Velocity 68.00 (50-150 cm/s) Tricuspid Valve TR P. Velocity 237.00 cm/s RAP Estimate 10.00 mmHg RVSP 32.50 mmHg Left Ventricle Left atrium is mildly enlarged, left ventricle is normal size, left ventricle wall thickness is upper limit of normal, there is preserved left ventricular systolic function, visually estimated ejection fraction 55% with no regional wall motion abnormality, diastolic parameters are inconclusive. Right Ventricle Right atrium and right ventricle are normal size and contractility. Aortic Valve Aortic valve is minimally thickened and fibrosed, there is no aortic stenosis or aortic insufficiency. Mitral Valve Mitral valve has mitral annular calcification, there is no mitral stenosis, there is mild mitral regurgitation. Tricuspid Valve Tricuspid grossly normal, there is mild tricuspid regurgitation, tricuspid regurgitation jet velocity is inadequate for calculation of the right ventricular systolic pressure. Pulmonic Valve Pulmonic valve is poorly visualized. Great Vessels Aortic root is normal size. Pericardium No significant pericardial effusion noted. Conclusion 1. Mildly enlarged left atrium, normal left ventricular size, visually estimated ejection fraction 55% with no regional wall motion abnormality, diastolic parameters are inconclusive. 2. Mild mitral and tricuspid regurgitation. 3. No significant pericardial effusion noted. Electronically signed by : Luis Alberto Hernandez, 03/06/2021 19:01:23
--- NOTE | 2021-03-06 06:12 | CA_ITS ---
APPROVED REPORT Exam: Pharmacologic Technologist: Erica Resendez Ht: 5 ft 0 in Wt: 159 lbs BSA: 1.69 m2 HR: 59 bpm BP: 164/62 mmHg Medical History Medications: tramadol, rosuvastatin, lisinopril, levothyroxine, hctz, asa, gabapentin, benadryl, diclofenac, atenolol Allergies: NKA Cardiac Risk Factors: HTN, Hyperlipidemia, FHX of CAD Stress Test Details Test: Grant HR Resting HR: 60 bpm Max Heart Rate (APMHR): 146.308883 bpm Max HR Achieved: 76 bpm Target HR (85% APMHR): 124.945605 bpm % of APMHR: 52.05 Recovery HR: 70 bpm BP Resting BP: 164.0/62.0 mmHg Max BP: 164.0/62.0 mmHg Recovery BP: 154.0/63.0 mmHg ECG Resting ECG: NSR, otherwise normal. Clinical Exercise duration: 4 min Highest Stage Achieved: Exercise capacity: 1.0 METs Stress ECG Conclusion Patient was switched from exercise to Lexiscan. No chest pain but patient had SOA and mild malaise.. No arrhythmia or ectopy. No significant ST changes. Unremarkable Lexiscan sttress. Images reported separately. Test Summary REST 01:33 0.0 0.0 60 . . . . Stage 1 . . . . . . . Stage held Stage 1 . . . . . . . Stage resumed Stage 1 00:22 10.0 0.0 62 . . . Stop exercise at 00:22 RECOVERY 00:17 0.0 0.0 63 . . . . Electronically signed by : Luis Alberto Hernandez, 03/06/2021 18:13:47
--- NOTE | 2021-03-06 06:12 | NM_ITS ---
APPROVED REPORT Exam: Nuclear Stress Test Indication: Fatigue, CAD, HTN, High cholesterol, Family history Patient Location: Outpatient Stress Tech: Erica Resendez [place] Tech:Neyda Walton, ARRT, RT (R)(N) Ht: 5 ft 2 in Wt: 160 lbs Bra Size: 42D HR: 59 bpm BP: 164/62 mmHg BSA: 1.74 m2 BMI: 29.2 History: Fatigue, CAD, HTN, High cholesterol, Family history Procedure: Patient received a 0.4 mg of intravenous Lexiscan, resting heart rate 59 bpm, resting blood pressure 164/62 mmHg, with Lexiscan maximum heart rate achived was 76 bpm which is Less than 85 % of the maximum predicted heart rate and blood pressure was 160/66 mmHg. With Lexiscan, patient denied any complaint of chest pain. Electrocardiogram Resting electrocardiogram showed sinus rhythm, with Lexiscan there is less than 1.[address] segment depression noted from the baseline EKG. The EKG portion of the Lexiscan is nondiagnostic. Cardiac Stress and Resting SPECT Images: Cardiac Stress and Resting SPECT images were obtained using technetium 99m Myoview 31.9 mCi stress and 10.74 mCi at rest. Gated SPECT for analysis of segmental wall motion and calculation of the ejection fraction also done. Prone images were also obtained. Cardiac stress and resting SPECT images show uniform myocardial activity without segmental perfusion abnormality, computer derived ejection fraction is 66% with no regional wall motion abnormality, right ventricle is normal size and contractility. Conclusion: 1. The EKG portion of the Lexiscan is nondiagnostic. 2. No scintigraphic evidence of reversible ischemia seen, computer derived ejection fraction 66% with no regional wall motion abnormality, right ventricle is normal size and contractility. 3. Normal Lexiscan Myoview study. Electronically signed by : Luis Alberto Hernandez, 03/06/2021 18:25:31
--- NOTE | 2021-03-06 06:12 | CA_ITS ---
APPROVED REPORT Business Management Consultant: LESLEY Laterality: Bilateral Indications: bilateral carotid bruits Risk Factors Hypertension: Doppler Spectral Velocity Analysis ECA (R) 89.80/7.50 cm/s ECA (L) 79.30/9.70 cm/s dICA (R) 123.00/31.00 cm/s dICA (L) 101.10/23.50 cm/s Abhi (R) 112.30/23.50 cm/s Abhi (L) 99.90/18.80 cm/s pICA (R) 58.40/15.70 cm/s pICA (L) 71.10/21.40 cm/s dCCA (R) 60.60/14.20 cm/s dCCA (L) 55.40/12.70 cm/s pCCA (R) 75.90/15.00 cm/s pCCA (L) 74.80/14.20 cm/s Vert (R) 45.40/9.10 cm/s Vert (L) 56.40/12.90 cm/s ICA/CCA 2.03 ICA/CCA 1.83 Findings Duplex evaluation demonstrates stenosis of the right proximal internal carotid artery <20% with PSV <140 cm/sec, EDV <100 cm/sec, and IC/CC Ratio <4.0. Duplex evaluation demonstrates stenosis of the left proximal internal carotid artery <20% with PSV <140 cm/sec, EDV <100 cm/sec, and IC/CC Ratio <4.0. Conclusion Duplex evaluation demonstrates stenosis of the right proximal internal carotid artery <20% with PSV <140 cm/sec, EDV <100 cm/sec, and IC/CC Ratio <4.0. Duplex evaluation demonstrates stenosis of the left proximal internal carotid artery <20% with PSV <140 cm/sec, EDV <100 cm/sec, and IC/CC Ratio <4.0. Antegrade vertebral flow bilat Electronically signed by : Raymond Sibley MD 03/06/2021 17:45:22
--- NOTE | 2021-03-06 08:22 | HMH.ITSHM ---
Current Home Medications as stated by this patient Chrissy Estes or outside sales representative insurance. []TRAMADOL ROSUVASTATIN LISINOPRIL LEVOTHYROXINE HCTZ GABAPENTIN DICLOFENAC ATENOLOL ASA
== END ==
PROVIDERS: PCP Nurse Practitioner Family; Visit Provider Internal Medicine Cardiovascular Disease
DX: E78.5 Hyperlipidemia, unspecified (principal); I10 Essential (primary) hypertension; I25.10 Atherosclerotic heart disease of native coronary artery without angina pectoris; R00.1 Bradycardia, unspecified; R07.89 Other chest pain; Z82.49 Family history of ischemic heart disease and other diseases of the circulatory system; R09.89 Other specified symptoms and signs involving the circulatory and respiratory systems
CPT/HCPCS: 78452; 93017; 93306; 93880; A9502; J2785

== ENCOUNTER → 2021-03-19 14:04 | Outpatient (POV) | payer MEDICARE, SELFPAY | PROVIDERS: Visit Provider Nurse Practitioner Family | DX: Z00.00 Encounter for general adult medical examination without abnormal findings (principal) ==

== ENCOUNTER → 2021-04-05 14:06 | Outpatient (CLI) | payer MEDICARE, SELFPAY | PROVIDERS: Visit Provider Internal Medicine Gastroenterology | DX: Z01.812 Encounter for preprocedural laboratory examination (principal); Z11.52 Encounter for screening for COVID-19; Z13.810 Encounter for screening for upper gastrointestinal disorder | CPT/HCPCS: U0003 ==

== ENCOUNTER 2021-04-06 08:52 | Day surgery (SDC) | payer MEDICARE, SELFPAY ==
[2021-04-05 12:48] VITALS: BMI 28.5
[2021-04-06 09:01] VITALS: PULSE 77; RESP 20; TEMP 36.6; O2SAT 98
[2021-04-06 09:41] VITALS: O2SAT 98
--- NOTE | 2021-04-06 09:44 | HMH.ANESCL ---
[facility] Anesthesia Checklist - Patient Identification Patient Identification: Arm Band - Structural Data Admitted From: Home Planned Operative Procedure/s: egd Consent for Planned Operative Procedure(s) Verified: Yes Verified Documents: Surgical Consent, History and Physical - NPO Status Verified Time NPO: 00:00 - Additional verifications Anesthesia Reactions: No - Airway Assessment C-Spine Mobility Assessed: Yes (mp2) TMJ Mobility Assessed: Yes Dentition: Partials - Neurological Assessment Level of Consciousness: Awake, Alert - Anesthesia Plan Anesthesia Risk discussed: Yes Anesthesia Plan: Verified ASA Class: II Anesthesia Type: MAC [facility] History I have reviewed the patient's past medical history: Yes Medical History: Reports:: Gall Bladder Disease, Gastroesophageal Reflux Disease(GERD), Hyperlipidemia, Hypertension Denies:: Anxiety, Cancer, Depression, Diabetes Mellitus Type 2, Internal Pacemaker, MRSA, Seizures *Have you ever received a pneumonia vaccine?: No *Have you received a flu vaccine this season?: No Other Medical History: Reports: Hypothyroidism, Sinus Problems, Thyroid Disease Anesthesia experience/problems:: nac Other Surgeries: Yes: Cholecystectomy, Hysterectomy-Total. No: Pacemaker Amputation: No Fractures: No - *Social History Last grade of school completed: High school graduate Smoking Status: Never smoker Alcohol Intake: never Substance Use Type: denies use *Occupational Status:: retired Housing: house Household Members: spouse *Travel in the last 8 weeks: None - Psychiatric History Pschychiatric History:: Denies:: Anxiety, Depression Family Hx:: Cancer, Diabetes, Heart Attack, Thyroid Disorder, Stroke, Hypertension, Hyperlipidemia, Kidney Disease
--- NOTE | 2021-04-06 10:03 | HMH.PROC ---
[facility] Procedure Note Procedure Note:: Upper Endoscopy Procedure Report: Esophagogastroduodenoscopy with cold biopsies and TTS balloon dilation Endoscopost: Crow Amato II, MD Referring Physician: FAUZIA Mccormack Date of Procedure: April 06, 2021 Equipment: Olympus GIF 190 standard upper endoscope Sedation: MAC sedation Indications: Mrs. Estes is a 75-year-old female with dysphagia primarily to solids. This also occurs with cold water. She does report chronic dyspepsia with left upper quadrant abdominal pain with some epigastric discomfort. She does have moderate bloating, gassiness and belching. She reports no significant heartburn or reflux. She had an uncle with stomach/gastric cancer diagnosed in his 60s. She has had less gassiness with reduction of dairy. The patient did have a CT scan of the abdomen that showed 2 small stones and a ligated cystic duct and she had prior cholecystectomy. She also had a 9 mm common bile duct but this remained unchanged since 2012. The patient also states that her sister had colon cancer in her early 60s and her grandfather also had colon cancer in his 80s. She had a normal colonoscopy 4 years ago and had a negative Cologuard 1 to 2 months ago. Procedure: Prior to the procedure, a history and physical exam was performed, and patient's medications and allergies were reviewed. The risks, benefits and alternatives of the sedation and procedure were discussed with the patient. All questions were answered and informed consent was obtained. The patient was brought to the procedure room. Patient identification and proposed procedure were verified by the physician and the nurse. The patient was placed in a left lateral decubitus position and the scope was passed under direct vision. Throughout the procedure, the patient's blood pressure, pulse, and oxygen saturations were monitored continuously. The upper GI endoscopy was accomplished without difficulty. The patient tolerated the procedure well. Findings: The scope was passed directly into the upper esophagus and advanced to the third portion of the duodenum. The post bulbar duodenum and duodenal bulb were normal with normal mucosa and conniventes. The scope was withdrawn through a normal duodenal bulb and pylorus into the stomach. There was some linear reactive gastropathy of the antrum. The remainder of the body and fundus of the stomach were grossly normal. Upon retroflexion there was a very small sliding 1 to 2 cm hiatal hernia. 2 biopsies were taken in the antrum and along the lesser curvature for histology to rule out gastritis and/or H pylori. The scope was then withdrawn into the esophagus. There was a serrated Z-line. Cold biopsies were obtained. There were strong tertiary contractions and evidence of moderate esophageal dysmotility. The entire esophagus was dilated to 60 Romansh/20 mm with a TTS hydrostatic balloon. There was some resistance at the cricopharyngeus (cricopharyngeal spasm). The remainder of the esophageal mucosa was normal. Impression: 1. 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 Nonerosive GERD with moderate esophageal dysmotility and very small sliding hiatal hernia (1 to 2 cm) 3. 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 We will discuss additional dietary measures and treatment options. I will recommend labs today to include liver/pancreatic chemistries (CMP, amylase and lipase). I will also obtain CBC and iron studies.
[2021-04-06 10:05] VITALS: BP 88/45; PULSE 42; RESP 18; TEMP 36.2; O2SAT 96
[2021-04-06 10:15] VITALS: BP 137/48; PULSE 44; RESP 18; O2SAT 90
[2021-04-06 10:25] VITALS: BP 124/62; PULSE 41; RESP 18; O2SAT 96
[2021-04-06 10:48] LABS: Basophils % 0.4 % (0.1-2.0); Eosinophils # 0.1 K/mm3 (0.0-0.4); Eosinophils % 2.5 % (0.1-12.0); Hematocrit 33.7 % (37.0-47.0); Hemoglobin 10.6 g/dL (12.2-16.2); Lymphocytes # 1.8 K/mm3 (0.7-4.5); Lymphocytes % 32.3 % (10-50); Mean Corpuscular HGB Conc 31.3 g/dL (31.8-35.4); Mean Corpuscular Hemoglobin 31.8 pg (27.0-31.2); Mean Corpuscular Volume 101.6 fl (81-99); Mean Platelet Volume 7.5 fl (7.4-10.4); Monocytes # 0.5 K/mm3 (0.1-1.0); Monocytes % 8.6 % (1.7-9.3); Neutrophils # 3.1 K/mm3 (1.8-7.8); Neutrophils % 56.2 % (37.0-80.0); Platelet Count 245 K/mm3 (142-424); Red Blood Count 3.32 M/mm3 (4.20-5.40); Red Cell Distribution Width 12.1 % (11.5-17.5); White Blood Count 5.5 K/mm3 (4.8-10.8)
[2021-04-06 10:50] VITALS: BP 146/87; PULSE 43; RESP 18; O2SAT 96
[2021-04-06 11:14] LABS: Chloride 104 mmol/L (98-107)
[2021-04-06 11:15] LABS: Sodium 139 mmol/L (136-145)
[2021-04-06 11:17] LABS: Amylase 55 U/L (30-110)
[2021-04-06 11:18] LABS: Alanine Aminotransferase 16 U/L (12-78); Albumin Level 3.6 g/dl (3.5-5.0); Albumin/Globulin Ratio 1.2 (1.1-1.8); Alkaline Phosphatase 73 U/L (38-126); Aspartate Amino Transferase 31 U/L (14-36); Bilirubin,Total 0.3 mg/dl (0.2-1.3); Blood Urea Nitrogen 31 mg/dl (7-17); Calcium 9.2 mg/dl (8.4-10.2); Carbon Dioxide 27 mmol/L (22.0-30.0); Creatinine Clearance Estimated 34 mL/min (50-200); Estimated Glomerular Filt Rate 32 ml/min (>60); GFR (African American) 38 ML/MIN (>60); Globulin 2.9 g/dL (1.3-3.2); Glucose 99 mg/dl (74-100); Iron 95 ug/dL (37-170); Lipase 212 U/L (23-300); Total Protein,Serum 6.5 g/dl (6.3-8.2)
[2021-04-06 11:28] LABS: Total Iron Binding Capacity 301 ug/dL (265-497)
[2021-04-06 11:56] LABS: Ferritin 178 ng/ml (11.1-264)
== END 2021-04-06 10:50 | disposition home or self-care (01) ==
LOC: OUTP 08:54
PROVIDERS: PCP Nurse Practitioner Family; Visit Provider Internal Medicine Gastroenterology
PROC: 0DJ08ZZ Inspection of Upper Intestinal Tract, Via Natural or Artificial Opening Endoscopic (ICD-10-PCS; CPT 43235; principal; 2021-04-06 10:00)
DX: J39.2 Other diseases of pharynx (principal); K21.9 Gastro-esophageal reflux disease without esophagitis; K22.4 Dyskinesia of esophagus; K44.9 Diaphragmatic hernia without obstruction or gangrene; K31.9 Disease of stomach and duodenum, unspecified; Z80.0 Family history of malignant neoplasm of digestive organs
CPT/HCPCS: 43239; 43249; 80053; 82150; 82728; 83540; 83550; 83690; 85025; 88305; C1726

== ENCOUNTER → 2021-04-16 10:43 | Outpatient (CLI) | payer MEDICARE, SELFPAY ==
--- NOTE | 2021-04-16 10:43 | MM_ITS ---
PROCEDURE: MM DIG SCREENING MAMM BI W/CAD Digital Breast Tomosynthesis Included CLINICAL INDICATION: screening xmg Screening for breast cancer COMPARISON: MG SCBI MM Dig screening mamm BI w/CAD from 04/15/2018 MG DIG MAMM-SCREEN GURMEET from 04/30/2019 MG MM DIG SCREENING MAMM BI W/CAD from 04/11/2020 TECHNIQUE: Standard CC and MLO images and 3D Tomosynthesis was obtained. R2 CAD reviewed. FINDINGS: Average fibroglandular tissue. No malignant appearing mass or suspicious microcalcification. No skin thickening or architectural distortion. IMPRESSION: BI-RAD Category: 1 Negative FOLLOW-UP: 1 YR 1 Year Follow-up (A letter has been sent to the patient regarding results of the study.) Dictated by: Raymond Sibley MD 04/17/2021 08:38 Raymond Sibley MD in [place] 04/17/2021 08:38
== END ==
PROVIDERS: PCP Nurse Practitioner Family; Visit Provider Nurse Practitioner Obstetrics & Gynecology
DX: Z12.31 Encounter for screening mammogram for malignant neoplasm of breast (principal)
CPT/HCPCS: 77063; 77067

== ENCOUNTER → 2021-07-19 11:25 | Outpatient (CLI) | payer MEDICARE, SELFPAY ==
[2021-07-19 11:29] LABS: Microscopic, Urine URINE MICROSCOPIC (MICROSCOPIC)
--- NOTE | 2021-07-19 11:46 | XR_ITS ---
PROCEDURE: XR HIP LT 2-3V W/PELVIS CLINICAL INDICATION: LUMBAR STENOSIS W/ NEUROGENIC CLAUDICATION COMPARISON: CR XR HIP LT 2-3V W/PELVIS from 10/11/2020 FINDINGS: No fracture or dislocation. No significant osteoarthritic change. There is mild hypertrophy of the greater trochanter. Postsurgical changes of the lower lumbar spine. IMPRESSION: No acute findings. Dictated by: Raymond Sibley MD 07/19/2021 13:46 Raymond Sibley MD in [place] 07/19/2021 13:46
[2021-07-19 11:56] LABS: Basophils # 0.1 K/mm3 (0-0.2); Basophils % 0.8 % (0.1-2.0); Eosinophils # 0.1 K/mm3 (0.0-0.4); Eosinophils % 1.8 % (0.1-12.0); Hematocrit 40.5 % (37.0-47.0); Hemoglobin 12.8 g/dL (12.2-16.2); Lymphocytes # 2.7 K/mm3 (0.7-4.5); Lymphocytes % 37.7 % (10-50); Mean Corpuscular HGB Conc 31.6 g/dL (31.8-35.4); Mean Corpuscular Hemoglobin 33.1 pg (27.0-31.2); Mean Corpuscular Volume 104.7 fl (81-99); Mean Platelet Volume 8.6 fl (7.4-10.4); Monocytes # 0.6 K/mm3 (0.1-1.0); Neutrophils # 3.6 K/mm3 (1.8-7.8); Neutrophils % 50.8 % (37.0-80.0); Platelet Count 320 K/mm3 (142-424); Red Blood Count 3.87 M/mm3 (4.20-5.40)
[2021-07-19 13:18] LABS: Albumin Level 3.8 g/dl (3.5-5.0); Anion Gap 9.3 mEq/L (5-15); Blood Urea Nitrogen 19 mg/dl (7-17); Calcium 9.1 mg/dl (8.4-10.2); Carbon Dioxide 29 mmol/L (22.0-30.0); Chloride 103 mmol/L (98-107); Estimated Glomerular Filt Rate 48 ml/min (>60); GFR (African American) 59 ML/MIN (>60); Glucose 94 mg/dl (74-100); Phosphorous 3.9 mg/dl (2.5-4.5); Potassium 5.3 mmoL/L (3.5-5.1); Sodium 136 mmol/L (136-145)
[2021-07-19 13:30] LABS: Intact Parathyroid Hormone 69.8 pg/mL (7.5-53.5)
[2021-07-19 13:34] LABS: 25-OH Vitamin D, Total 27.7 ng/mL (30-100)
[2021-07-19 16:21] LABS: Creatinine,Urine Random 63 mg/dL (Not Estab.)
[2021-07-19 17:07] LABS: Appearance,Urine SL CLOUDY (Clear); Bilirubin,Urine Negative (Negative); Blood, Urine 1+ (Negative); Color,Urine YELLOW (Yellow); Glucose,Urine (UA) Negative (Negative); Ketones,Urine Negative (Negative); Leukocyte Esterase,Urine 3+ (Negative); Nitrate,Urine Negative (Negative); PH,Urine 6.5 (5.0-8.5); Protein,Urine Negative (Negative); Urobilinogen,Urine 0.2 EU/dl (0.2)
[2021-07-19 17:23] LABS: Bacteria,Urine 3+ /lpf; WBC,Urine 20-50 #/hpf (0-3)
== END ==
PROVIDERS: PCP Nurse Practitioner Family; Visit Provider Internal Medicine Nephrology
DX: N18.32 Chronic kidney disease, stage 3b (principal); E55.9 Vitamin D deficiency, unspecified; M48.062 Spinal stenosis, lumbar region with neurogenic claudication; R82.90 Unspecified abnormal findings in urine
CPT/HCPCS: 36415; 73502; 80069; 81001; 82306; 82570; 83970; 84155; 85025; 87086

== ENCOUNTER → 2021-07-23 13:29 | Outpatient (POV) | payer MEDICARE, SELFPAY | PROVIDERS: Visit Provider Internal Medicine Nephrology | DX: Z00.00 Encounter for general adult medical examination without abnormal findings (principal) ==

== ENCOUNTER 2021-08-03 11:00 | Outpatient (RCR) | payer MEDICARE, SELFPAY | END 2021-08-03 11:05 | disposition home or self-care (01) | LOC: PT 11:00 | PROVIDERS: PCP Nurse Practitioner Family; Visit Provider Physician Assistant | DX: M48.062 Spinal stenosis, lumbar region with neurogenic claudication (principal) | CPT/HCPCS: 97014; 97110; 97140; 97163; 97164; G0283 ==

== ENCOUNTER → 2021-08-20 09:01 | Outpatient (CLI) | payer MEDICARE, SELFPAY ==
--- NOTE | 2021-08-20 09:02 | XR_ITS ---
PROCEDURE: XR DEXA AXIAL SKELETON CLINICAL HISTORY: osteoporosis screening COMPARISON: CR BONE3 BONE DENSITOMETRY(HIP:LT SPINE from 03/15/2015 FINDINGS: The right hip BMD is 0.825 with a T-score of -0.2. The left hip BMD is 0.94 with a T-score of 0.0. Radius 1/3 density is 0.678 with a T-score of -0.3 Previously the lowest density was in the right femoral neck with a T-score of 0.3 IMPRESSION: This patient is considered normal according to the World Health Organization criteria. Fracture risk is low. Based on these results a follow-up exam is recommended in 2 year. Dictated by: Raymond Sibley MD 08/20/2021 10:08 Raymond Sibley MD in [place] 08/20/2021 10:08
== END ==
PROVIDERS: PCP Nurse Practitioner Family; Visit Provider Nurse Practitioner Obstetrics & Gynecology
DX: Z78.0 Asymptomatic menopausal state (principal)
CPT/HCPCS: 77080

== ENCOUNTER → 2021-09-07 10:41 | Outpatient (CLI) | payer MEDICARE, SELFPAY ==
--- NOTE | 2021-09-07 10:44 | MR_ITS ---
PROCEDURE INFORMATION: Exam: MR Left Lower Extremity Joint Without Contrast; Hip Exam date and time: 09/07/2021 10:44 AM Age: 76 years old Clinical indication: Pain; Hip; Left; Additional info: Left hip pain, greater trochanteric pain. Lt hip joint pain x3-4months. No injury or trauma. Prior x-ray 07-19-21 TECHNIQUE: Imaging protocol: MR of the Left lower extremity joint without contrast. Exam focused on the hip. Sequences: Coronal and axial large field of view sequences include the pelvis and both hips. Additional sequences are focused on the symptomatic hip. COMPARISON: 1. CR XR HIP LT 2-3V W/PELVIS 07/19/2021 11:53 AM 2. CR XR HIP LT 2-3V W/PELVIS 10/11/2020 10:56 AM 3. CR HIPCMLT XR hip LT 2-3V w/pelvis 12/08/2018 2:27 PM FINDINGS: Bones and cartilage: Bone marrow edema in the left ischium suggests that the high-grade hamstring tear is subacute. Postoperative changes involving the lower lumbar spine are partially imaged. There is no acute fracture or dislocation. No aggressive bone lesions are present. Minimal osteoarthritis involves the hips. Joint spaces: A mild joint effusion involves each hip. Labrum: Assessment of each hip labrum is limited with degenerative tearing not being unusual in a patient of this age. Bursae: A moderate amount of fluid is present in each greater trochanteric bursa. TENDONS: Tendons of iliopsoas group: Unremarkable. No evidence of tear. Tendons of medial compartment of thigh: Unremarkable. No evidence of tear. Tendons of lateral rotators of hip: Unremarkable. No evidence of tear. Tendons of gluteal group: Intermediate grade partial-thickness tearing involves the bilateral gluteus minimus and medius tendons. Tendons of posterior compartment of thigh: High grade partial-thickness tearing involves the left hamstring tendons at the origin. A moderate amount of fluid in is present in the left hamstring tendon tear region. Muscles: Severe atrophy involves the bilateral gluteus minimus muscles and the anterior aspect of each gluteus medius muscle. Soft tissues: No suspicious mass. IMPRESSION: 1. High grade partial-thickness tear of the left hamstring tendons with associated bone marrow edema and soft tissue fluid suggesting a subacute injury. 2. Severe muscle atrophy involving the bilateral gluteus minimus and anterior bilateral gluteus medius muscles. 3. Intermediate grade partial-thickness tearing involves the bilateral gluteus minimus and medius tendons. 4. Moderate bilateral greater trochanteric bursitis.
== END ==
PROVIDERS: PCP Nurse Practitioner Family; Visit Provider Nurse Practitioner Family
DX: M25.552 Pain in left hip (principal)
CPT/HCPCS: 73721

== ENCOUNTER 2021-12-24 11:00 | Outpatient (RCR) | payer MEDICARE, SELFPAY ==
--- NOTE | 2021-10-30 10:59 | HMH.PTOPEV ---
PT Outpatient Evaluation Rehab PT Outpatient Evaluation Start: 10/30/21 10:43 Freq: Status: Active Protocol: Document 10/30/21 10:48 MACY (Rec: 10/30/21 10:59 PHORJUAN [id number]) Electronically Signed By Giovany Fine, PT 10/30/21 10:48 Outpatient Therapy Subjective History Subjective History Pt is 76 yowf who presents with c/o pain in L hip laterally and posteriorly x ~ 1 yr with insidious onset of symptoms. She reports pain is aching and hairly constant, worse with sitting (especially riding in a car), and in the evening. She had MRI performed which shows partial tear of L glut med and min tendons, partial tear (high-grade) of L hams at origin. This scorrelates with pt symptoms as she has significant palpation tenderness at the L ischial tuberosity this date. She has hx of lumbar fusion ~ 6 years ago, but no current c/ o LBP or numbness/tingling. Chief Complaint Pain Symptom Type Ache Symptoms Relieved By Rest/Positioning,Heat Symptoms Aggravated By Sitting,Physical Activity Prior Functional Limitations None Current Functional Limitations Driving,Sleeping,Sitting, Recreation Activity,Walking Symptom Description Constant but Variable Level of pain today (0-10) 5 Pain scale - at its worst (0-10) 9 Hip/Knee Eval Gait Observation General Gait Pattern Observation Antalgic Gait Palpation Tenderness left Knee Palpation Overall Comment L GT, L IT, L ITB Hip Palpation Findings Tenderness MMT Hip Flexion Strength Grade 4 Good Hip Abduction Strength Grade 4 Good Hip Adduction Strength Grade 5 Normal Hip Extension Strength Grade 4 Good Gluteus Genaro Strength Grade 4 Good Hip External Rotation Strength Grade 4 Good Hip Internal Rotation Strength Grade 5 Normal Knee Extension Strength Grade 5 Normal Knee Flexion Strength Grade 5 Normal Special Tests Hip Piriformis Test Negative Left,Negative Right Sciatic Nerve Tension Test Negative Left,Negative Right Hip Scouring (Quadrant) Test Negative Left,Negative Right Outpatient Therapy Assessment Impairments Problems/Impairmments Palpation Tenderness,Impaired Strength,Impaired Endurance,
--- NOTE | 2021-11-29 16:15 | HMH.RHREAS ---
Rehab Reassessment Rehab OP Re-assessment Start: 11/29/21 16:11 Freq: Status: Active Protocol: Document 11/29/21 16:11 PHOMANSI (Rec: 11/29/21 16:15 PHORJUAN [id number]) Electronically Signed By Giovany Fine, PT 11/29/21 16:11 Rehab Re-assessment Subjective Subjective Pt reports continued pain along L lateral hip at greater trochanter and distally to the knee. Objective Objective Notes MMT L LE: HIP ABD= 4+/5, EXT= 4+/5. KNEE flex 4+/5. Pain: 5/10. Assessment Progress Assessment Progressing as Expected Assessment Notes Pt has shown mild improvements in strength and continues to ambulate with antalgic gait pattern. However, pain is improving and there is no tenderness to the ischial tuberosity at this time. Patient goals met ST,2,3,4,5 Goals Not Met LT,2,3,4,5,6,7 Revised Goals none Plan Plan Continue per initial POC. Frequency of Therapy 2 x/wk Duration of therapy 8 wks Time and Billing Re-Eval Time 14 Re-Eval Billing Units 1 PHYSICIAN CERTIFICATION: I certify the specified therapy services for Chrissy Estes are required, authorized, and reviewed every 30 days.
== END 2021-12-24 11:05 | disposition home or self-care (01) ==
LOC: PT 11:00
PROVIDERS: PCP Nurse Practitioner Family; Visit Provider Orthopaedic Surgery
DX: M71.552 Other bursitis, not elsewhere classified, left hip (principal)
CPT/HCPCS: 97010; 97014; 97035; 97110; 97140; 97163; 97164; G0283

== ENCOUNTER → 2022-01-30 13:56 | Outpatient (CLI) | payer MEDICARE, SELFPAY ==
[2022-01-30 15:26] LABS: Albumin Level 3.9 g/dl (3.5-5.0); Anion Gap 11.1 mEq/L (5-15); Blood Urea Nitrogen 27 mg/dl (7-17); Carbon Dioxide 29 mmol/L (22.0-30.0); Chloride 101 mmol/L (98-107); Estimated Glomerular Filt Rate 44 ml/min (>60); GFR (African American) 53 ML/MIN (>60); Glucose 113 mg/dl (74-100); Phosphorous 4.5 mg/dl (2.5-4.5); Potassium 5.1 mmoL/L (3.5-5.1); Sodium 136 mmol/L (136-145)
[2022-01-30 18:33] LABS: Microalbumin/Creatinine Ratio 17.4
[2022-01-30 18:53] LABS: Creatinine,Urine Random 77 mg/dL (Not Estab.)
== END ==
PROVIDERS: PCP Nurse Practitioner Family; Visit Provider Internal Medicine Nephrology
DX: N18.31 Chronic kidney disease, stage 3a (principal)
CPT/HCPCS: 36415; 80069; 82043; 82570

== ENCOUNTER → 2022-02-04 12:50 | Outpatient (POV) | payer MEDICARE, SELFPAY | PROVIDERS: Visit Provider Internal Medicine Nephrology | DX: Z00.00 Encounter for general adult medical examination without abnormal findings (principal) ==

== ENCOUNTER → 2022-03-12 10:46 | Outpatient (CLI) | payer MEDICARE, SELFPAY ==
--- NOTE | 2022-03-12 10:48 | US_ITS ---
FINAL REPORT CLINICAL HISTORY: HYPOTHYROIDISM FINDINGS: Sonographic images of the thyroid were obtained. The right lobe of the thyroid measures 1.2 x 3.8 x 1.5 cm. The left lobe of the thyroid measures 0.9 x 3.0 x 1.5 cm. The isthmus is normal. There is a solid, hypoechoic nodule in the right thyroid lobe measuring 4 x 4 x 3 mm consistent with TI-RADS category 4. IMPRESSION: Right thyroid lobe nodule. No follow-up is required. Reviewed, Interpreted and Dictated by Adrian Ayala III, MD Transcribed by Rosy Wen Authenticated and [facility]
== END ==
PROVIDERS: PCP Nurse Practitioner Family; Visit Provider Nurse Practitioner Family
DX: E03.9 Hypothyroidism, unspecified (principal)
CPT/HCPCS: 76536

== ENCOUNTER → 2022-03-19 11:20 | Outpatient (CLI) | payer MEDICARE, SELFPAY ==
--- NOTE | 2022-03-19 11:39 | XR_ITS ---
FINAL REPORT CLINICAL HISTORY: LEFT HAND PAIN FINDINGS: LEFT HAND: 3 views of the left hand were obtained. There is no acute fracture or dislocation. There are moderate to severe degenerative changes of the 1st CMC joint. There are mild degenerative changes elsewhere. Soft tissues are unremarkable. IMPRESSION: Degenerative change as above. Reviewed, Interpreted and Dictated by Adrian Ayala III, MD Transcribed by Thao Machuca Authenticated and [facility]
--- NOTE | 2022-03-19 11:39 | XR_ITS ---
FINAL REPORT CLINICAL HISTORY: CERVICALGIA FINDINGS: CERVICAL SPINE Five views were obtained. There is no acute fracture. There is no malalignment. There is mild degenerative change which is worse at C5-C6 with osteophyte formation. There is no soft tissue abnormality. IMPRESSION: Mild degenerative change as above. Reviewed, Interpreted and Dictated by Adrian Ayala III, MD Transcribed by Thao Machuca Authenticated and [facility]
[2022-03-19 12:08] LABS: Erythrocyte Sedimentation Rate 72 mm/hr (0-30)
[2022-03-19 12:13] LABS: Uric Acid 6.7 mg/dl (2.5-6.2)
[2022-03-19 12:18] LABS: C-Reactive Protein 2.3 mg/L (0-4)
[2022-03-20 13:10] LABS: RA Latex Turbid. <10.0 IU/mL (<14.0)
[2022-03-21 08:07] LABS: Antinuclear Antibodies, IFA Negative (.)
== END ==
PROVIDERS: PCP Nurse Practitioner Family; Visit Provider Nurse Practitioner Family
DX: M54.2 Cervicalgia (principal); M25.50 Pain in unspecified joint; M79.642 Pain in left hand
CPT/HCPCS: 36415; 72050; 73130; 84550; 85651; 86038; 86140; 86431

== ENCOUNTER → 2022-03-27 10:16 | Outpatient (CLI) | payer MEDICARE, SELFPAY ==
--- NOTE | 2022-03-27 10:19 | CA_ITS ---
FINAL REPORT TECHNIQUE: Color Doppler, duplex Doppler and henry scale sonography of the bilateral neck arterial vasculature was performed. Velocities were measured in the carotid arteries. Stenosis evaluation based on the validated velocity criteria. CLINICAL HISTORY: DIZZINESS, HTN,HLD FINDINGS: The peak systolic velocity of the right common carotid artery is 77 cm/s. The peak systolic velocity of the right internal carotid artery is 141 cm/s and end diastolic velocity 2 7 cm/s. The ICA/CCA ratio is 1.8. A small amount of plaque is present. The right external carotid artery is patent. The right vertebral artery is patent with antegrade flow. The peak systolic velocity of the left common carotid artery is 65 cm/s. The peak systolic velocity of the left internal carotid artery is 99 cm/s and end diastolic velocity 28 cm/s. The ICA/CCA ratio is 1.6. A small amount of plaque is present. The left external carotid artery is patent.The left vertebral artery is patent with antegrade flow. IMPRESSION: Less than 50% bilateral carotid stenoses. Bilateral patent vertebral arteries with antegrade flow. If indicated, CTA or MRA could further evaluate. Reviewed, Interpreted and Dictated by Adrian Ayala III, MD Transcribed by Ashley Murillo Authenticated and [facility]
== END ==
PROVIDERS: PCP Nurse Practitioner Family; Visit Provider Nurse Practitioner Family
DX: R42 Dizziness and giddiness (principal); Z13.6 Encounter for screening for cardiovascular disorders
CPT/HCPCS: 93880

== ENCOUNTER → 2022-04-30 10:56 | Outpatient (CLI) | payer MEDICARE, SELFPAY ==
--- NOTE | 2022-04-30 10:56 | MM_ITS ---
PROCEDURE INFORMATION: Exam: MG Bilateral Screening 3D Mammography Exam date and time: 04/30/2022 10:53 AM Age: 76 years old Clinical indication: Screening examination TECHNIQUE: Imaging protocol: Bilateral Screening tomosynthesis and 2D mammography including computer-aided detection (CAD) when performed. COMPARISON: 1. MG MM DIG SCREENING MAMM BI W/CAD 04/16/2021 10:47 AM 2. MG MM DIG SCREENING MAMM BI W/CAD 04/11/2020 10:16 AM FINDINGS: MAMMOGRAPHY: Breast composition: The breasts are heterogeneously dense, which may obscure small masses. Mass: None. Architectural distortion: None. Calcifications: No suspicious calcifications. Asymmetric density: None. Skin thickening: None. Axillary adenopathy: None. IMPRESSION: No mammographic evidence of malignancy. Annual screening is recommended unless otherwise clinically indicated. ASSESSMENT: BI-RADS Category 1: Negative
== END ==
PROVIDERS: PCP Nurse Practitioner Family; Visit Provider Nurse Practitioner Obstetrics & Gynecology
DX: Z12.31 Encounter for screening mammogram for malignant neoplasm of breast (principal)
CPT/HCPCS: 77063; 77067

== ENCOUNTER → 2022-05-02 09:09 | Outpatient (CLI) | payer MEDICARE, SELFPAY ==
--- NOTE | 2022-05-02 09:09 | US_ITS ---
FINAL REPORT CLINICAL HISTORY: bilateral rest pain, HTN, HLD, edema, previous smoker, varicose veins FINDINGS: ANKLE-BRACHIAL PRESSURE INDICES Pressure indices are as follows: RIGHT LOWER EXTREMITY: Ankle-brachial pressure index: 1.08 TBI: 0.81 Comments: Normal waveforms and pulses. LEFT LOWER EXTREMITY: Ankle-brachial pressure index: 1.14 TBI: 0.54 Comments: Normal waveforms and pulses. IMPRESSION: No evidence of significant obstructive peripheral vascular disease of the lower extremities Reviewed, Interpreted and Dictated by Radha Colon MD Transcribed by Ami Malin Authenticated and [facility]
--- NOTE | 2022-05-02 09:09 | CA_ITS ---
FINAL REPORT CLINICAL HISTORY: EDEMA,BILATERAL REST PAIN,HTN,HLD FINDINGS: DUPLEX VENOUS SONOGRAPHY OF THE BILATERAL LOWER EXTREMITIES Multiple transverse and longitudinal scans were performed of the femoropopliteal deep venous systems, with augmentation and compression maneuvers. HISTORY: Bilateral lower extremity pain and swelling, hypertension FINDINGS: Normal phasic flow was noted in the visualized deep venous systems. No intraluminal increased echogenicity is noted to suggest thrombus. There is normal compression and augmentation of the venous structures. No abnormal venous collaterals are seen. IMPRESSION: No evidence of deep venous thrombosis of the bilateral lower extremities. Reviewed, Interpreted and Dictated by Radha Colon MD Transcribed by Ami Malin Authenticated and [facility]
== END ==
PROVIDERS: PCP Nurse Practitioner Family; Visit Provider Internal Medicine Cardiovascular Disease
DX: E78.5 Hyperlipidemia, unspecified (principal); I10 Essential (primary) hypertension; I25.10 Atherosclerotic heart disease of native coronary artery without angina pectoris; I73.9 Peripheral vascular disease, unspecified; R00.1 Bradycardia, unspecified; R07.9 Chest pain, unspecified; R60.0 Localized edema; R09.89 Other specified symptoms and signs involving the circulatory and respiratory systems
CPT/HCPCS: 93923; 93970

== ENCOUNTER → 2022-06-20 13:34 | Outpatient (CLI) | payer MEDICARE, SELFPAY ==
--- NOTE | 2022-06-20 13:37 | MR_ITS ---
FINAL REPORT CLINICAL HISTORY: LOW BACK AND RIGHT HIP PAIN 6 MONTHS PAIN WHEN BENDING COMPARISON: October 13, 2020 FINDINGS: Multiplanar MR imaging of the lumbar spine was performed without contrast. There is fusion of L3-L5. On the sagittal T2-weighted images, disc degeneration is seen at multiple levels. There is mild retrolisthesis of L2 on L3. There is endplate change at multiple levels. There is no evidence of fracture. The conus has an unremarkable appearance. T11-T12: There is an annular bulge, facet arthropathy and vertebral osteophytes. There is mild bilateral neural foraminal narrowing. T12-L1: There is an annular bulge, facet arthropathy and vertebral osteophytes. L1-2: There is an annular bulge, facet arthropathy and vertebral osteophytes. There is a left foraminal disc protrusion. There is mild right and moderate left neural foraminal narrowing. L2-3: There is an annular bulge, facet arthropathy and vertebral osteophytes. There is mild bilateral neural foraminal narrowing. L3-4: There is fusion at this level. There are L3 laminectomies. There is mild bilateral neural foraminal narrowing. L4-5: There is fusion at this level. There is mild bilateral neural foraminal narrowing. There is a fluid collection measuring 37 mm in height centered posterior to L4 likely representing a postoperative seroma. This was seen on the prior exam. L5-S1: There is an annular bulge and facet arthropathy. There is mild right and severe left neural foraminal narrowing. There is mild spurring of the SI joints. IMPRESSION: Fusion of L3-L5 with likely postoperative seroma posterior to the L4 vertebral body. Stable from the prior exam. Multilevel areas of degenerative disc disease and neural foraminal narrowing. Left foraminal disc protrusion at L1-L2, stable. Reviewed, Interpreted and Dictated by Adrian Ayala III, MD Transcribed by Iglesia Marshall Authenticated and [facility]
--- NOTE | 2022-06-20 13:37 | MR_ITS ---
FINAL REPORT CLINICAL HISTORY: LOW BACK AND RIGHT HIP PAIN. LOWER BACK PAIN AND RIGHT HIP PAIN X 6 MONTHS PAIN WHEN BENDING COMPARISON: September 07, 2021 FINDINGS: Multiplanar MR imaging of the right hip was performed without contrast. There is no evidence of fracture or dislocation. There is no evidence of avascular necrosis. No bony mass is identified. No labral tear is identified. There is a moderate, progressed tear at the origin of the right hamstring tendons. There is a large tear similar in appearance at the origin of the left hamstring tendons. There is a partial tear at the insertion of the right gluteus minimus and medius tendons. There is a large partial tear at the origin of the left gluteus medius tendon. There are small bilateral hip joint effusions. There is soft tissue edema in the left greater than right hip abductor musculature. IMPRESSION: Moderate tear at the origin of the right hamstring tendons, worse. Large tear at the origin of the left hamstring tendons, similar. Partial tear at the insertion of the right gluteus minimus and medius and large partial tear of the origin of the right gluteus medius, similar to prior. Reviewed, Interpreted and Dictated by Adrian Ayala III, MD Transcribed by Iglesia Marshall Authenticated and [facility]
== END ==
PROVIDERS: PCP Nurse Practitioner Family; Visit Provider Nurse Practitioner Family
DX: M54.50 Low back pain, unspecified (principal); M25.551 Pain in right hip
CPT/HCPCS: 72148; 73721; 76376

== ENCOUNTER → 2022-07-29 10:02 | Outpatient (POV) | payer MEDICARE, SELFPAY ==
[2022-07-29 10:40] VITALS: BP 149/71; PULSE 51; RESP 18; TEMP 36.6; O2SAT 98; BMI 25.7
--- NOTE | 2022-07-29 16:31 | EXP.PAIN.OV ---
HPI Data of Consult Patient: new to practice Consult date: 07/29/22 Requesting Physician: Vianca Zuleta APRN Primary Care Provider: Oly Dotson APRN Consult Narrative Reason for consult: Low back pain, right hip pain History of present illness: Ms. Estes is a 77 year old female who presents today as a new patient. She is a referral from Ruthy Bernal's office. Today she rates her pain a 5 out of 10. She states the pain is primarily in her low back that radiates into her right hip. Patient denies any new injury or trauma. Patient states this has been going on for years and progressively gotten worse over time. Patient describes this as a throbbing sensation that is worse with increased activity. Patient states sitting frequently makes her pain worse and due to stiffening of her joints. Patient states she does trying to stay active and exercise daily along with strengthening exercises. Patient does have a history of arthritis and sacroiliitis. Patient has been seen by Dr. Garcia in the past for her hip pain. She states he did do injective therapy that helped some. Patient does currently managed her pain symptoms with tramadol [address] Degroot's office. Patient denies any side effects from this medication. She states this medication does adequately help manage her symptoms. Patient also is prescribed muscle relaxer however patient states she does not remember the name. Patient was previously prescribed gabapentin 100 mg however she states her primary care physician has recently taken her off of this medication. Patient does use a heating pad as needed to help with her pain and also had additional hip injections by Dr. Arriaza's office. Patient does use an arthritis cream that provides some improvement of her symptoms. She has recently saw physical therapy within the last 6 months and it did provide some improvement of her symptoms. Her Van is [id number]. It has been reviewed and appropriate. CC: Vianca Zuleta APRN PFSH PFSH Medical History (Updated 07/29/22 @ 16:39 by Vianca Zuleta APRN) Chest pain Claudication Coronary artery calcification seen on CT scan Edema of both lower extremities Family history of heart disease Gout HLD (hyperlipidemia) HTN (hypertension) Hypothyroidism Osteoarthritis Sinus bradycardia Surgical History (Updated 07/29/22 @ 10:47 by Savita Chatterjee RN) H/O total hysterectomy Hx of cholecystectomy Social History (Updated 07/29/22 @ 10:47 by Savita Chatterjee RN) Smoking Status: Never smoker alcohol intake: never substance use type: denies use current occupational status: retired Travel in the last 8 weeks: None household members: spouse housing: house current occupational exposures/hazards: No caffeine: Yes Review of Systems Review of Systems Review of systems:: pertinent systems reviewed and negative unless documented below Review of systems (narrative): Review of Systems: General: No recent weight changes, no fever, no sleep disturbances Respiratory: No cough, no shortness of air, no recurring pulmonary infections Cardiovascular/peripheral vascular: No chest pain, no palpitations, no edema, no shortness of breath Gastrointestinal: No new onset incontinence, normal bowel movements reported Genitourinary: No new onset incontinence Musculoskeletal: Low back pain, right hip pain Psychiatric: [Normal mood/affect] Neurological: [Denies weakness in extremities], [denies balance issues] Meds Home Medications and Allergies Home Medications Medication Instructions Recorded Confirmed Type diphenhydramine HCl 25 mg capsule 25 mg PO Q4-6H PRN allergies 12/29/17 07/29/22 History (Allergy Medication) hydrochlorothiazide 25 mg tablet 25 mg PO QAM Edema 12/29/17 07/29/22 History atenolol 50 mg tablet 50 mg PO DAILY High blood pressure 02/23/21 07/29/22 History gabapentin 100 mg capsule 100 mg PO DAILY Pain 02/23/21 07/29/22 History levothyroxine 25 mcg t
== END ==
PROVIDERS: PCP Nurse Practitioner Family; Visit Provider Nurse Practitioner Family
DX: M51.36 Other intervertebral disc degeneration, lumbar region (principal); M47.819 Spondylosis without myelopathy or radiculopathy, site unspecified; M25.551 Pain in right hip
CPT/HCPCS: 99202; G0463

== ENCOUNTER → 2022-10-31 12:22 | Outpatient (CLI) | payer MEDICARE, SELFPAY ==
--- NOTE | 2022-10-31 12:36 | XR_ITS ---
FINAL REPORT CLINICAL HISTORY: LT HIP PAIN FINDINGS: Left hip Three views were obtained. There is no acute fracture or dislocation. There are mild degenerative changes. No soft tissue abnormality is identified. IMPRESSION: No acute process. Reviewed, Interpreted and Dictated by Brian Delcid MD Transcribed by Rosy Wen Authenticated and [facility]
== END ==
PROVIDERS: PCP Nurse Practitioner Family; Visit Provider Nurse Practitioner Family
DX: M25.552 Pain in left hip (principal)
CPT/HCPCS: 73502

== ENCOUNTER → 2022-12-17 13:38 | Outpatient (CLI) | payer MEDICARE, SELFPAY ==
--- NOTE | 2022-12-17 13:44 | CT_ITS ---
FINAL REPORT TECHNIQUE: Axial CT images of the chest were obtained with contrast. Coronal reformatted images were also obtained. This study was performed with techniques to keep radiation doses as low as reasonably achievable, (ALARA). Individualized dose reduction techniques using automated exposure control or adjustment of mA and/or KV according to the patient's size were employed. CLINICAL HISTORY: LUNG NODULE COMPARISON: 12/22/2020 FINDINGS: There is no evidence of mediastinal or hilar mass or adenopathy. No axillary mass or adenopathy is identified. On lung window images, there is a 3 mm nodule in the lateral segment of the right middle lobe which is not as well seen as on the prior study but is probably stable. There are several calcified granulomas. No new mass or nodule. No localized pulmonary inflammatory process is identified. Limited images of the upper abdomen reveal mild fatty infiltration of the liver. IMPRESSION: Probable stable 3 mm nodule right middle lobe. No new mass or nodule. Mild fatty infiltration of the liver. Reviewed, Interpreted and Dictated by Adrian Ayala III, MD Transcribed by Ashley Murillo Authenticated and [facility]
== END ==
PROVIDERS: PCP Nurse Practitioner Family; Visit Provider Nurse Practitioner Family
DX: R91.1 Solitary pulmonary nodule (principal)
CPT/HCPCS: 71260; Q9967

== ENCOUNTER → 2023-03-13 09:11 | Outpatient (CLI) | payer MEDICARE, SELFPAY ==
[2023-03-13 09:39] LABS: Basophils % 0.3 % (0.1-2.0); Eosinophils # 0.1 K/mm3 (0.0-0.4); Eosinophils % 1.3 % (0.1-12.0); Hemoglobin 12.7 g/dL (12.2-16.2); Lymphocytes # 2.3 K/mm3 (0.7-4.5); Lymphocytes % 31.7 % (10-50); Mean Corpuscular HGB Conc 31.9 g/dL (31.8-35.4); Mean Corpuscular Hemoglobin 32.2 pg (27.0-31.2); Mean Corpuscular Volume 100.9 fl (81-99); Mean Platelet Volume 8.3 fl (7.4-10.4); Monocytes # 0.5 K/mm3 (0.1-1.0); Monocytes % 7.5 % (1.7-9.3); Neutrophils # 4.3 K/mm3 (1.8-7.8); Neutrophils % 59.1 % (37.0-80.0); Platelet Count 261 K/mm3 (142-424); Red Blood Count 3.96 M/mm3 (4.20-5.40); Red Cell Distribution Width 13.3 % (11.5-17.5); White Blood Count 7.2 K/mm3 (4.8-10.8)
[2023-03-13 10:05] LABS: Alanine Aminotransferase 23 U/L (12-78); Albumin Level 4.2 g/dl (3.5-5.0); Alkaline Phosphatase 69 U/L (38-126); Anion Gap 15.4 mEq/L (5-15); Aspartate Amino Transferase 36 U/L (14-36); Bilirubin,Indirect 0.4 mg/dL (0.0-0.9); Bilirubin,Total 0.4 mg/dl (0.2-1.3); Bilirubin,Unconjugated 0.5 mg/dL (0.0-1.1); Blood Urea Nitrogen 26 mg/dl (7-17); Calcium 9.5 mg/dl (8.4-10.2); Carbon Dioxide 26 mmol/L (22.0-30.0); Chloride 103 mmol/L (98-107); Cholesterol 162 mg/dl (140-200); Estimated Glomerular Filt Rate 48 ml/min (>60); GFR (African American) 58 ML/MIN (>60); Glucose 97 mg/dl (74-100); HDL Cholesterol 54 mg/dl (40-60); Magnesium 1.6 mg/dl (1.6-2.3); Potassium 5.4 mmoL/L (3.5-5.1); Sodium 139 mmol/L (136-145); Total Protein,Serum 7.2 g/dl (6.3-8.2); Triglycerides 217 mg/dl (30-150); VLDL Cholesterol 43 mg/dL (0-40)
[2023-03-13 10:17] LABS: Direct LDL Cholesterol 67.33 mg/dL (100-129)
[2023-03-13 10:22] LABS: Free T4 (Free Thyroxine) 1.07 ng/dl (0.78-2.19)
[2023-03-13 10:36] LABS: Thyroid Stimulating Hormone 0.63 uIU/mL (0.465-4.68)
== END ==
PROVIDERS: PCP Nurse Practitioner Family; Visit Provider Nurse Practitioner
DX: E78.5 Hyperlipidemia, unspecified (principal); I10 Essential (primary) hypertension; I25.10 Atherosclerotic heart disease of native coronary artery without angina pectoris; R00.1 Bradycardia, unspecified; Z01.810 Encounter for preprocedural cardiovascular examination; Z79.84 Long term (current) use of oral hypoglycemic drugs
CPT/HCPCS: 36415; 80048; 80061; 80076; 83735; 84439; 84443; 85025

== ENCOUNTER → 2023-05-09 10:54 | Outpatient (CLI) | payer MEDICARE, SELFPAY ==
--- NOTE | 2023-05-09 10:56 | MM_ITS ---
PROCEDURE INFORMATION: Exam: MG Bilateral Screening 3D Mammography Exam date and time: 05/09/2023 10:48 AM Age: 77 years old Clinical indication: Screening examination; Family history of breast cancer in aunt and Niece TECHNIQUE: Imaging protocol: Bilateral Screening tomosynthesis and 2D mammography including computer-aided detection (CAD) when performed. COMPARISON: 1. MG MM DIG SCREENING MAMM BI W/CAD 04/30/2022 10:53 AM 2. MG MM DIG SCREENING MAMM BI W/CAD 04/16/2021 10:47 AM FINDINGS: MAMMOGRAPHY: Breast composition: There are scattered areas of fibroglandular density. Mass: None. Architectural distortion: None. Calcifications: No suspicious calcifications. Asymmetric density: None. Skin thickening: None. Axillary adenopathy: None. IMPRESSION: No mammographic evidence of malignancy. Annual screening is recommended unless otherwise clinically indicated. ASSESSMENT: BI-RADS Category 1: Negative
== END ==
PROVIDERS: PCP Nurse Practitioner Family; Visit Provider Nurse Practitioner Family
DX: Z12.31 Encounter for screening mammogram for malignant neoplasm of breast (principal)
CPT/HCPCS: 77063; 77067

== ENCOUNTER → 2023-05-15 12:42 | Outpatient (CLI) | payer MEDICARE, SELFPAY ==
--- NOTE | 2023-05-15 12:46 | CA_ITS ---
FINAL REPORT TECHNIQUE: Color Doppler, duplex Doppler and henry scale sonography of the bilateral neck arterial vasculature was performed. Velocities were measured in the carotid arteries. Stenosis evaluation based on the validated velocity criteria. CLINICAL HISTORY: DIZZINESS,HTN FINDINGS: The peak systolic velocity of the right common carotid artery is 86 cm/s. The peak systolic velocity of the right internal carotid artery is 160 cm/s and end diastolic velocity 32 cm/s. A mild amount of plaque is present. The right external carotid artery is patent. The right vertebral artery is patent with antegrade flow. The peak systolic velocity of the left common carotid artery is 74 cm/s. The peak systolic velocity of the left internal carotid artery is 123 cm/s and end diastolic velocity 32 cm/s. A mild amount of plaque is present. The left external carotid artery is patent. The left vertebral artery is patent with antegrade flow. IMPRESSION: Less than 50% bilateral carotid stenoses. Bilateral patent vertebral arteries with antegrade flow. If indicated, CTA or MRA could further evaluate. Reviewed, Interpreted and Dictated by Adrian Ayala III, MD Transcribed by Ami Malin Authenticated and . [facility]
== END ==
PROVIDERS: PCP Nurse Practitioner Family; Visit Provider Nurse Practitioner Family
DX: R42 Dizziness and giddiness (principal)
CPT/HCPCS: 93880

== ENCOUNTER → 2023-05-21 08:29 | Outpatient (CLI) | payer MEDICARE, SELFPAY ==
--- NOTE | 2023-05-21 08:44 | MR_ITS ---
FINAL REPORT CLINICAL HISTORY: PROFUSION OF LUMBAR INTERVERTEBRAL DISC LOW BACK PAIN, LEFT HIP PAIN COMPARISON: 06/20/2022 FINDINGS: Multiplanar MR imaging of the lumbar spine was performed without contrast. On the sagittal T2-weighted images, disc degeneration is seen throughout. There is mild anterolisthesis of L4 on L5 and a 5 mm of anterolisthesis of L5 on S1. There are endplate changes at multiple levels. The patient has undergone a posterior fusion from L3-L5. There is no evidence of fracture. No bony mass is identified. The conus has an unremarkable appearance. L1-2: An annular bulge is present. There is facet osteoarthropathy at this level as well as mild right and moderate left neuroforaminal narrowing. There is no canal stenosis at this level. L2-3: An annular bulge is present. There is facet osteoarthropathy and osteophyte formation along with mild bilateral neural foraminal narrowing. No significant canal stenosis is identified. L3-4: There is evidence of a fusion and bilateral L3 laminectomies. There is mild right and moderate left neural foraminal narrowing without significant canal stenosis. L4-5: There is evidence of a fusion in the bilateral L4 laminectomies. There is a fluid collection posterior to the thecal sac that measures 38 mm in height, unchanged since the prior MRI of June 2022. There is mild right neural foraminal narrowing but no significant canal stenosis at this level. L5-S1: An annular bulge is present. There is facet osteoarthropathy with mild right and severe left neural foraminal narrowing which causes impingement of the L5 nerve root in the foramen. IMPRESSION: Multilevel degenerative disc disease and spondylosis as described. Fluid collection posterior to the thecal sac measuring 38 mm in height, unchanged since the prior MRI of 2021. This most likely represents postoperative seroma or hematoma. Reviewed, Interpreted and Dictated by Adrian Ayala III, MD Transcribed by Meme Go Authenticated and [facility]
== END ==
PROVIDERS: PCP Nurse Practitioner Family; Visit Provider Nurse Practitioner Family
DX: M51.26 Other intervertebral disc displacement, lumbar region
CPT/HCPCS: 72148; 76376

== ENCOUNTER → 2023-06-04 08:44 | Outpatient (CLI) | payer MEDICARE, SELFPAY ==
--- NOTE | 2023-06-04 08:48 | US_ITS ---
FINAL REPORT CLINICAL HISTORY: FATTY LIVER FINDINGS: ULTRASOUND RIGHT UPPER QUADRANT Sonographic imaging of the right upper quadrant was obtained. The pancreas is partially obscured. There is increased echogenicity in the liver consistent with fatty infiltration. The gallbladder is surgically absent. There is no biliary ductal dilatation. The common bile duct is within normal limits. The right kidney measures 8.8 cm in length. There is no stone or hydronephrosis. IMPRESSION: Fatty liver. Reviewed, Interpreted and Dictated by Rob Limon MD Transcribed by Martha Arteaga Authenticated and [facility]
== END ==
PROVIDERS: PCP Nurse Practitioner Family; Visit Provider Family Medicine
DX: K76.0 Fatty (change of) liver, not elsewhere classified (principal)
CPT/HCPCS: 76705

== ENCOUNTER → 2023-06-16 12:00 | Outpatient (CLI) | payer MEDICARE, SELFPAY | PROVIDERS: PCP Nurse Practitioner Family; Visit Provider Nurse Practitioner Family | DX: L08.9 Local infection of the skin and subcutaneous tissue, unspecified (principal); T14.8XXA Other injury of unspecified body region, initial encounter; B95.7 Other staphylococcus as the cause of diseases classified elsewhere | CPT/HCPCS: 87070; 87077; 87186; 87205 ==

== ENCOUNTER 2023-10-10 09:43 | Outpatient (CLI) | payer MEDICARE, SELFPAY ==
[2023-10-10 17:54] LABS: Amphetamine/Metha Screen,Urine Negative ng/ml (<1000); Barbiturates Screen,Urine Negative ng/ml (<200); Benzodiazepines Screen,Urine Negative ng/ml (<200); Cannabinoid Screen,Urine Negative ng/ml (<50); Cocaine Screen,Urine Negative ng/ml (<300); Methadone Screen,Urine Negative ng/ml (<300); Opiate Screen,Urine Negative ng/ml (<300); Phencyclidine Screen,Urine Negative ng/ml (<25)
== END 2023-10-10 23:59 ==
LOC: LAB.DROPOF 10-11 09:43
PROVIDERS: PCP Nurse Practitioner Family; Visit Provider Nurse Practitioner Family
DX: Z79.891 Long term (current) use of opiate analgesic (principal); R82.998 Other abnormal findings in urine; B96.1 Klebsiella pneumoniae [K. pneumoniae] as the cause of diseases classified elsewhere
CPT/HCPCS: 80307; 87086

== ENCOUNTER 2023-12-16 12:54 | Outpatient (CLI) | payer MEDICARE, SELFPAY ==
[2023-12-16 13:53] LABS: Alanine Aminotransferase 19 U/L (12-78); Albumin Level 4.1 g/dl (3.5-5.0); Albumin/Globulin Ratio 1.4 (1.1-1.8); Alkaline Phosphatase 81 U/L (38-126); Aspartate Amino Transferase 34 U/L (14-36); Bilirubin,Total 0.4 mg/dl (0.2-1.3); Blood Urea Nitrogen 32 mg/dl (7-17); Calcium 9.1 mg/dl (8.4-10.2); Carbon Dioxide 26 mmol/L (22.0-30.0); Chloride 105 mmol/L (98-107); Estimated Glomerular Filt Rate 48 ml/min (>60); GFR (African American) 58 ML/MIN (>60); Globulin 2.9 g/dL (1.3-3.2); Glucose 101 mg/dl (74-100); Sodium 139 mmol/L (136-145)
[2023-12-16 13:58] LABS: C-Reactive Protein 1.5 mg/L (0-4)
[2023-12-16 14:24] LABS: Thyroid Stimulating Hormone 0.09 uIU/mL (0.465-4.68)
== END 2023-12-16 23:59 ==
LOC: LAB.DROPOF 12:55
PROVIDERS: PCP Nurse Practitioner Family; Visit Provider Nurse Practitioner Family
DX: L29.9 Pruritus, unspecified (principal); E03.9 Hypothyroidism, unspecified
CPT/HCPCS: 80053; 84443; 86140

== ENCOUNTER 2023-12-26 09:48 | Outpatient (CLI) | payer MEDICARE, SELFPAY ==
--- NOTE | 2023-12-26 09:49 | US_ITS ---
FINAL REPORT TECHNIQUE: Ultrasound images of the thyroid were obtained. CLINICAL HISTORY: Follow-up thyroid nodule FINDINGS: The right lobe of the thyroid measures 3.9 x 1.2 x 1.7 cm. It is normal in echogenicity. The left lobe of the thyroid measures 3.8 x 1.3 x 1.1 cm. It is normal in echogenicity. There is a 3 x 3 x 3 mm nodule in the right thyroid lobe which is solid and hypoechoic, previously measured 4 mm. IMPRESSION: No significant change in small right lobe nodule, TR 4. No follow-up needed per TI-RADS criteria. Reviewed, Interpreted and Dictated by Adrian Ayala III, MD Transcribed by Ami Malin Authenticated and [facility]
== END 2023-12-26 23:59 ==
LOC: RAD 09:49
PROVIDERS: PCP Nurse Practitioner Family; Visit Provider Nurse Practitioner Family
DX: E04.1 Nontoxic single thyroid nodule (principal)
CPT/HCPCS: 76536

== ENCOUNTER 2024-01-07 12:52 | Outpatient (CLI) | payer MEDICARE, SELFPAY ==
[2024-01-07 16:17] LABS: Free T4 (Free Thyroxine) 0.94 ng/dl (0.78-2.19)
[2024-01-07 17:42] LABS: Alanine Aminotransferase 23 U/L (12-78); Albumin/Globulin Ratio 1.3 (1.1-1.8); Alkaline Phosphatase 87 U/L (38-126); Anion Gap 13.3 mEq/L (5-15); Aspartate Amino Transferase 38 U/L (14-36); Bilirubin,Total 0.3 mg/dl (0.2-1.3); Blood Urea Nitrogen 37 mg/dl (7-17); Calcium 9.5 mg/dl (8.4-10.2); Carbon Dioxide 24 mmol/L (22.0-30.0); Chloride 108 mmol/L (98-107); Estimated Glomerular Filt Rate 44 ml/min (>60); GFR (African American) 53 ML/MIN (>60); Glucose 91 mg/dl (74-100); Potassium 5.3 mmoL/L (3.5-5.1); Sodium 140 mmol/L (136-145)
[2024-01-08 08:54] LABS: Triiodothyronine (T3) Free 2.4 pg/mL (2.0-4.4)
== END 2024-01-07 23:59 ==
LOC: LAB.DROPOF 12:52
PROVIDERS: PCP Nurse Practitioner Family; Visit Provider Nurse Practitioner Family
DX: K76.0 Fatty (change of) liver, not elsewhere classified (principal); E03.9 Hypothyroidism, unspecified; E04.1 Nontoxic single thyroid nodule; R91.1 Solitary pulmonary nodule
CPT/HCPCS: 80053; 82565; 84439; 84443; 84481; 84520

== ENCOUNTER 2024-01-22 10:29 | Outpatient (CLI) | payer MEDICARE, SELFPAY ==
--- NOTE | 2024-01-22 10:30 | CT_ITS ---
FINAL REPORT TECHNIQUE: Before and after the administration of intravenous contrast, axial images through the chest were performed by computed tomography. This study was performed with techniques to keep radiation doses as low as reasonably achievable, (ALARA). Individualized dose reduction techniques using automated exposure control or adjustment of mA and/or kV according to the patient's size were employed. CLINICAL HISTORY: Right middle lobe lung nodule COMPARISON: CT chest 12/17/2022 FINDINGS: CT CHEST WITH AND WITHOUT CONTRAST: There is no axillary adenopathy. There are a few small scattered mediastinal nodes present, measuring up to 11 mm in size. The heart size is normal. There is no pericardial or pleural effusion. Limited images of the upper abdomen reveal fatty infiltration of the liver. No suspicious infiltrate or nodule identified. The 3 mm nodule mentioned on the prior CT of 12/17/2022 in the lateral segment of the right middle lobe is not seen on today's exam. Calcified granulomas are noted in the medial aspect of the right upper lobe. IMPRESSION: Few small scattered mediastinal nodes measuring up to 11 mm in size. The 3 mm nodule seen on the prior CT of December 2022 is not identified on today's exam. Fatty infiltration of the liver. Reviewed, Interpreted and Dictated by Rob Limon MD Transcribed by Meme Go Authenticated and [facility]
[2024-01-22] MEDS: SODIUM CHLORIDE 0.9% 10ML SYR (RAD ONLY) 10 ML IV (10:52)
[2024-01-22] MEDS: IOPAMIDOL-370 (76%);100ML BOTTLE 75 ML IV (10:52)
== END 2024-01-22 23:59 | disposition home or self-care (01) ==
LOC: RAD 10:30
PROVIDERS: PCP Nurse Practitioner Family; Visit Provider Nurse Practitioner Family
DX: R91.1 Solitary pulmonary nodule (principal)
CPT/HCPCS: 71270; Q9967

== ENCOUNTER 2024-01-30 14:03 | Outpatient (CLI) | payer MEDICARE, SELFPAY ==
--- NOTE | 2024-01-30 14:04 | CA_ITS ---
FINAL REPORT TECHNIQUE: Ultrasound images of the deep venous system were obtained from the left groin to the calf veins. CLINICAL HISTORY: left leg pain and swelling FINDINGS: The deep venous system is normally compressible. Normal flow is identified. IMPRESSION: No evidence of left lower extremity DVT. Reviewed, Interpreted and Dictated by Rob Limon MD Transcribed by Martha Arteaga Authenticated and [facility]
== END 2024-01-30 23:59 | disposition home or self-care (01) ==
LOC: RT 14:04
PROVIDERS: PCP Nurse Practitioner Family; Visit Provider Nurse Practitioner Family
DX: M79.605 Pain in left leg (principal)
CPT/HCPCS: 93971

== ENCOUNTER 2024-01-30 15:12 | Outpatient (CLI) | payer MEDICARE, SELFPAY ==
[2024-01-30 15:40] LABS: Basophils % 0.6 % (0.1-2.0); Eosinophils # 0.2 K/mm3 (0.0-0.4); Eosinophils % 2.3 % (0.1-12.0); Hematocrit 36.7 % (37.0-47.0); Hemoglobin 11.4 g/dL (12.2-16.2); Lymphocytes # 2.2 K/mm3 (0.7-4.5); Lymphocytes % 33.3 % (10-50); Mean Corpuscular HGB Conc 30.9 g/dL (31.8-35.4); Mean Corpuscular Hemoglobin 32.7 pg (27.0-31.2); Mean Corpuscular Volume 105.5 fl (81-99); Mean Platelet Volume 9.4 fl (7.4-10.4); Monocytes # 0.6 K/mm3 (0.1-1.0); Monocytes % 9.3 % (1.7-9.3); Neutrophils # 3.6 K/mm3 (1.8-7.8); Neutrophils % 54.5 % (37.0-80.0); Platelet Count 240 K/mm3 (142-424); Red Blood Count 3.48 M/mm3 (4.20-5.40); Red Cell Distribution Width 13.6 % (11.5-17.5); White Blood Count 6.6 K/mm3 (4.8-10.8)
[2024-01-30 15:52] LABS: Alanine Aminotransferase 22 U/L (12-78); Albumin Level 3.9 g/dl (3.5-5.0); Albumin/Globulin Ratio 1.3 (1.1-1.8); Alkaline Phosphatase 78 U/L (38-126); Anion Gap 11.3 mEq/L (5-15); Aspartate Amino Transferase 38 U/L (14-36); Bilirubin,Total 0.2 mg/dl (0.2-1.3); Blood Urea Nitrogen 29 mg/dl (7-17); Calcium 9.4 mg/dl (8.4-10.2); Carbon Dioxide 27 mmol/L (22.0-30.0); Chloride 107 mmol/L (98-107); Estimated Glomerular Filt Rate 48 ml/min (>60); GFR (African American) 58 ML/MIN (>60); Globulin 2.9 g/dL (1.3-3.2); Glucose 90 mg/dl (74-100); Magnesium 1.7 mg/dl (1.6-2.3); Potassium 5.3 mmoL/L (3.5-5.1); Sodium 140 mmol/L (136-145); Total Protein,Serum 6.8 g/dl (6.3-8.2)
[2024-01-30 16:23] LABS: Thyroid Stimulating Hormone 0.03 uIU/mL (0.465-4.68)
[2024-01-30 17:42] LABS: Ferritin 107 ng/ml (11.1-264)
[2024-01-30 19:18] LABS: Vitamin B12 746 pg/mL (239-931)
== END 2024-01-30 23:59 | disposition home or self-care (01) ==
LOC: LAB.DROPOF 15:13
PROVIDERS: PCP Nurse Practitioner Family; Visit Provider Nurse Practitioner Family
DX: M79.605 Pain in left leg (principal); R60.0 Localized edema; D64.9 Anemia, unspecified; I10 Essential (primary) hypertension; E78.5 Hyperlipidemia, unspecified; E03.9 Hypothyroidism, unspecified
CPT/HCPCS: 80053; 82607; 82728; 83735; 84443; 85025; 93971

== ENCOUNTER 2024-04-12 13:06 | Outpatient (CLI) | payer MEDICARE, SELFPAY ==
--- NOTE | 2024-04-12 13:07 | MR_ITS ---
FINAL REPORT CLINICAL HISTORY: LBP with left sciatica, post lumbar surgery COMPARISON: 05/21/2020 FINDINGS: Multiplanar MR imaging of the lumbar spine was performed without contrast. On the sagittal T2-weighted images, disc degeneration is seen throughout. There is 5 mm of anterolisthesis of L5 on S1, stable. There is mild anterolisthesis of L4 on L5. Fusion is noted of L3 through L5. There is mild leftward curvature of the lumbosacral spine. There is no evidence of fracture. No bony mass is identified. The conus has an unremarkable appearance. L1-2: Annular disc bulge, facet arthropathy, and osteophytes. Moderate bilateral neural foraminal narrowing. L2-3: Annular disc bulge, facet arthropathy, and osteophytes. Mild bilateral neural foraminal narrowing. L3-4: L3 laminectomies and fusion. Vertebral osteophytes. Mild bilateral neural foraminal narrowing. L4-5: L4 laminectomies and fusion. Fluid collection posterior to the thecal sac measuring up to 37 mm in height is stable and likely represents postoperative seroma. Moderate right and mild left neural foraminal narrowing. L5-S1: Annular disc bulge and facet arthropathy. Moderate right and severe left neural foraminal narrowing, stable. Mild central canal stenosis with AP diameter of the thecal sac of 7 mm. IMPRESSION: Multilevel degenerative disc disease and spondylosis as described. Probable seroma L4-5. Moderate to severe neural foraminal narrowing with mild central canal stenosis at L5-S1. Reviewed, Interpreted and Dictated by Adrian Ayala III, MD Transcribed by Ashley Murillo Authenticated and . [facility]
== END 2024-04-12 23:59 | disposition home or self-care (01) ==
LOC: RAD 13:07
PROVIDERS: PCP Nurse Practitioner Family; Visit Provider Nurse Practitioner Family
DX: M54.42 Lumbago with sciatica, left side (principal); Z98.890 Other specified postprocedural states
CPT/HCPCS: 72148

== ENCOUNTER 2024-06-03 10:23 | Outpatient (CLI) | payer MEDICARE, SELFPAY ==
--- NOTE | 2024-06-03 10:24 | MM_ITS ---
PROCEDURE INFORMATION: Exam: MG Bilateral Screening 3D Mammography Exam date and time: 06/03/2024 10:16 AM Age: 78 years old Clinical indication: Screening examination TECHNIQUE: Imaging protocol: Bilateral Screening tomosynthesis and 2D mammography including computer-aided detection (CAD) when performed. COMPARISON: 1. MG MM DIG SCREENING MAMM BI W/CAD 05/09/2023 10:48 AM 2. MG MM DIG SCREENING MAMM BI W/CAD 04/30/2022 10:53 AM FINDINGS: MAMMOGRAPHY: Breast composition: There are scattered areas of fibroglandular density. Mass: None. Architectural distortion: None. Calcifications: No suspicious calcifications. Asymmetric density: None. Skin thickening: None. Axillary adenopathy: None. IMPRESSION: No mammographic evidence of malignancy. Annual screening is recommended unless otherwise clinically indicated. ASSESSMENT: BI-RADS Category 1: Negative
== END 2024-06-03 23:59 | disposition home or self-care (01) ==
LOC: RAD 10:24
PROVIDERS: PCP Nurse Practitioner Family; Visit Provider Nurse Practitioner Family
DX: Z12.31 Encounter for screening mammogram for malignant neoplasm of breast (principal)
CPT/HCPCS: 77063; 77067

== ENCOUNTER 2024-08-06 12:17 | Outpatient (CLI) | payer MEDICARE, SELFPAY ==
--- NOTE | 2024-08-06 11:54 | ECG_ITS ---
APPROVED REPORT Exam: Resting ECG HR:46 bpm ECG Measurements Heart Rate 46 AXES [place] 165 P 58 QRSd 88 QRS 4 QT 436 T 34 QTc 396 Conclusion SINUS BRADYCARDIA LOW QRS VOLTAGE IN PRECORDIAL LEADS [QRS DEFLECTION < 1.0 mV IN CHEST LEADS] BORDERLINE ECG UNCONFIRMED REPORT Electronically signed by : Jesse Alberto MD 08/09/2024 08:21:17
[2024-08-06 12:37] LABS: Basophils # 0.1 K/mm3 (0-0.2); Basophils % 0.6 % (0.1-2.0); Eosinophils # 0.1 K/mm3 (0.0-0.4); Eosinophils % 1.1 % (0.1-12.0); Hematocrit 37.4 % (37.0-47.0); Hemoglobin 12.2 g/dL (12.2-16.2); Lymphocytes % 35.8 % (10-50); Mean Corpuscular HGB Conc 32.7 g/dL (31.8-35.4); Mean Corpuscular Hemoglobin 33.1 pg (27.0-31.2); Mean Corpuscular Volume 101.4 fl (81-99); Mean Platelet Volume 7.9 fl (7.4-10.4); Monocytes # 0.6 K/mm3 (0.1-1.0); Monocytes % 6.9 % (1.7-9.3); Neutrophils # 4.7 K/mm3 (1.8-7.8); Neutrophils % 55.7 % (37.0-80.0); Platelet Count 226 K/mm3 (142-424); Red Blood Count 3.69 M/mm3 (4.20-5.40); Red Cell Distribution Width 13.3 % (11.5-17.5); White Blood Count 8.4 K/mm3 (4.8-10.8)
[2024-08-06 13:27] LABS: Alanine Aminotransferase 20 U/L (12-78); Albumin Level 3.9 g/dl (3.5-5.0); Albumin/Globulin Ratio 1.4 (1.1-1.8); Alkaline Phosphatase 66 U/L (38-126); Anion Gap 9.6 mEq/L (5-15); Aspartate Amino Transferase 32 U/L (14-36); Bilirubin,Total 0.4 mg/dl (0.2-1.3); Blood Urea Nitrogen 34 mg/dl (7-17); Carbon Dioxide 27 mmol/L (22.0-30.0); Chloride 107 mmol/L (98-107); Chol/HDL Ratio 3.5 (1-3.5); Cholesterol 173 mg/dl (140-200); Estimated Glomerular Filt Rate 48 ml/min (>60); GFR (African American) 58 ML/MIN (>60); Globulin 2.8 g/dL (1.3-3.2); Glucose 91 mg/dl (74-100); HDL Cholesterol 49 mg/dl (40-60); Magnesium 1.8 mg/dl (1.6-2.3); Potassium 4.6 mmoL/L (3.5-5.1); Sodium 139 mmol/L (136-145); Total Protein,Serum 6.7 g/dl (6.3-8.2); Triglycerides 250 mg/dl (30-150); VLDL Cholesterol 50 mg/dL (0-40)
[2024-08-06 13:38] LABS: C-Reactive Protein 1.3 mg/L (0-4); Direct LDL Cholesterol 89.52 mg/dL (100-129)
[2024-08-06 13:52] LABS: Troponin I < 0.01 ng/ml (0.00-0.034)
[2024-08-06 13:56] LABS: Thyroid Stimulating Hormone 0.03 uIU/mL (0.465-4.68)
== END 2024-08-06 23:59 | disposition home or self-care (01) ==
LOC: LAB 12:18
PROVIDERS: PCP Nurse Practitioner Family; Visit Provider Nurse Practitioner Family
DX: R07.89 Other chest pain (principal); E03.9 Hypothyroidism, unspecified; E78.5 Hyperlipidemia, unspecified; I10 Essential (primary) hypertension; R00.1 Bradycardia, unspecified; R10.13 Epigastric pain
CPT/HCPCS: 36415; 80053; 80061; 83735; 84443; 84484; 85025; 86140; 93005

== ENCOUNTER 2024-08-17 06:42 | Outpatient (CLI) | payer MEDICARE, SELFPAY ==
--- NOTE | 2024-08-17 | CA_ITS ---
APPROVED REPORT Exam: Pharmacologic Technologist: Yaquelin Figueroa Ht: 5 ft 2 in Wt: 153 lbs BSA: 1.71 m2 HR: 46 bpm BP: 180/67 mmHg Rhythm: Bradycardia Medical History Allergies: cefuroxime, ibuprofen Cardiac Risk Factors: HTN, Hyperlipidemia, FHX of CAD Pretest Chest Pain Characteristics: Nonanginal chest pain Stress Test Details Test: Lexiscan HR Resting HR: 46 bpm Max Heart Rate (APMHR): 142.464944 bpm Max HR Achieved: 74 bpm Target HR (85% APMHR): 120.118797 bpm % of APMHR: 52.11 Recovery HR: 62 bpm BP Resting BP: 180.0/67.0 mmHg Max BP: 180.0/69.0 mmHg Recovery BP: 158.0/78.0 mmHg ECG Clinical Reason for Termination: Completed protocol Stress ECG Conclusion Symptoms: Dizziness, headache,nausea Arrhythmias - PVC ST-T changes - less than [address] depression.. Conclusion - EKG portion unremarkable due to Lexiscan infusion Electronically signed by : Layla Cano MD 08/18/2024 09:21:37
--- NOTE | 2024-08-17 06:50 | NM_ITS ---
APPROVED REPORT Exam: Nuclear Stress Test Indication: Chest pain, HTN, High cholesterol, Family history Patient Location: Outpatient Stress Tech: Yaquelin Figueroa PA Tech:Neyda Walton, ARRT, RT (R)(N) Ht: 5 ft 2 in Wt: 150 lbs Bra Size: 42DD HR: 50 bpm BP: 180/67 mmHg BSA: 1.69 m2 TID: 1.14 BMI: 27.4 History: Chest pain, HTN, High cholesterol, Family history Procedure: Patient received 0.4 mg of intravenous Lexiscan, resting heart rate 50 bpm, resting blood pressure 180/67 mmHg, with Lexiscan maximum heart rate achieved was 74 bpm which is % of the maximum predicted heart rate and blood pressure was 152/64 mmHg. With Lexiscan, patient denied any complaint of chest pain. Cardiac Stress and Resting SPECT Images: Cardiac Stress and Resting SPECT images were obtained using technetium 99m Myoview 31.7 mCi stress and 10.27 mCi at rest. Resting and stress imaging in supine and prone positions demonstrate no evidence of fixed or reversible perfusion defects. Gated imaging demonstrates normal global and regional LV systolic function. LVEF is calculated at 68%. Conclusion: No evidence of fixed or reversible perfusion defects. Gated imaging demonstrates normal global and regional LV systolic function. LVEF is calculated at 68%. Electronically signed by : Layla Cano MD 08/18/2024 09:22:37
[2024-08-17] MEDS: ISOTOPE MYOVIEW (PER STUDY) 1 DOSE IV (08:34)
[2024-08-17] MEDS: REGADENOSON 0.4MG/5ML SYRINGE 0.4 MG IV (08:34)
[2024-08-17] MEDS: SODIUM CHLORIDE 0.9% 10ML SYR (RAD ONLY) 10 ML IV ×2 (08:34)
== END 2024-08-17 23:59 | disposition home or self-care (01) ==
LOC: RAD 06:43
PROVIDERS: PCP Nurse Practitioner Family; Visit Provider Physician Assistant
DX: R07.9 Chest pain, unspecified (principal)
CPT/HCPCS: 78452; 93017; 93018; A9502; J2785

== ENCOUNTER 2024-08-20 13:25 | Outpatient (CLI) | payer MEDICARE, SELFPAY ==
--- NOTE | 2024-08-20 13:29 | CA_ITS ---
APPROVED REPORT EXAM: Comprehensive 2D, Doppler, and color-flow Echocardiogram Chemical Production Engineer: Katharina Fung, NILESH, RVS Ht: 5 ft 2 in Wt: 153lbs BSA: 1.71 BP: 183/60 mmHg Indications: CP, Pre-op clearance, HTN, HLD, +family Hx-heart disease 2D Dimensions Left Atrium 3.89 cm LA Volume 55.10 mL LA Volume Index 31.50 mL/m2 (M/F) 16-34 EF AP4 58.70 % GL Strain -21.5 % M-Mode Dimensions RVDd 2.93 cm (0.9-2.6) LA Diam 4.06 cm (1.9-4.0) LVDd 4.29 cm (3.5-5.7) LVDs 2.79 cm (3.5-5.7) IVSd 1.07 cm (0.6-1.1) PWd 0.97 cm (0.6-1.1) EF (Teich) 65.30% EPSs 0.22 cm FS 35.60% EDV (Teich) 84.40 mL TAPSE 2.25 (<1.7) ESV (Teich) 29.30 mL LV Diastology E Decel Time 143 (160-240 msec) E/A Ratio 1.25 MED A' 9.40 cm/s LAT A' 9.50 cm/s Aortic Valve STEFANIA Index 1.12 cm2/m2 AoV Peak Sven. 120.0 (50-130 cm/s) AO Peak GR. 5.70 mmHg AO Mean GR. 2.90 (<5 mmHg) AO VTI 31.5 (18-25 cm) STEFANIA (VTI) 1.96 (2.5-4.5 cm2) Mitral Valve MV A Velocity 80.0 (40-130 cm/s) E/A Ratio 1.25 Pulmonary Valve MN End VMAX 144.0 cm/s Tricuspid Valve TR P. Velocity 232.00 cm/s RAP Estimate 10.00 mmHg RVSP 31.50 mmHg Left Ventricle The left ventricle is normal size. The left ventricular systolic function is normal. The left ventricular ejection fraction is within the normal range. There is increased LV wall thickness. There is normal LV segmental wall motion. The left ventricular diastolic function is normal. LVEF is 60%. Right Ventricle The right ventricle is normal size. The right ventricular systolic function is normal. Atria Left atrium is mildly dilated. The right atrium size is normal. The interatrial septum is not well-visualized. Aortic Valve The aortic valve opens well. There is no aortic valvular stenosis. No aortic regurgitation is present. Mitral Valve The mitral valve is normal in structure. Mild mitral regurgitation. Tricuspid Valve The tricuspid valve leaflets are thin and pliable. Mild tricuspid regurgitation. RVSP is 16 mmHg + RA pressure. Pulmonic Valve The pulmonary valve is normal in structure. Mild pulmonic regurgitation. Great Vessels The aortic root is normal in size. The ascending aorta is not well-visualized. The IVC is not well-visualized. Pericardium There is no pericardial effusion. Other Information Study Quality: Fair Conclusion Normal biventricular systolic function. Mild LA dilation. Mild MR, mild TR. Electronically signed by : Layla Cano MD 08/24/2024 11:18:46
== END 2024-08-20 23:59 | disposition home or self-care (01) ==
LOC: RT 13:26
PROVIDERS: PCP Nurse Practitioner Family; Visit Provider Physician Assistant
DX: I51.7 Cardiomegaly (principal); R07.89 Other chest pain
CPT/HCPCS: 93306

== ENCOUNTER 2024-11-04 13:09 | Outpatient (CLI) | payer MEDICARE, SELFPAY ==
--- NOTE | 2024-11-04 13:15 | XR_ITS ---
FINAL REPORT CLINICAL HISTORY: pain in right shoulder COMPARISON: 07/14/2020 FINDINGS: RIGHT SHOULDER Three views demonstrate no acute fracture or dislocation. There are mild hypertrophic changes are joint. The soft tissues are unremarkable. IMPRESSION: Degenerative changes without acute bony abnormality. Reviewed, Interpreted and Dictated by Rob Limon MD Transcribed by Karoline Barkley Authenticated and [facility]
== END 2024-11-04 23:59 | disposition home or self-care (01) ==
LOC: RAD 13:12
PROVIDERS: PCP Nurse Practitioner Family; Visit Provider Nurse Practitioner Family
DX: M25.511 Pain in right shoulder (principal)
CPT/HCPCS: 73030

== ENCOUNTER 2024-12-07 09:40 | Outpatient (CLI) | payer MEDICARE, SELFPAY ==
[2024-12-07 17:16] LABS: Coronavirus 19, PCR Not Detected (NotDetected); Human Rhinovirus Not Detected (NotDetected); Influenza B, PCR Not Detected (NotDetected); Respiratory Syncytial Virus Not Detected (NotDetected)
[2024-12-08 05:05] LABS: Influenza A, PCR Detected (NotDetected)
== END 2024-12-07 23:59 | disposition home or self-care (01) ==
LOC: LAB.DROPOF 12-08 09:40
PROVIDERS: PCP Nurse Practitioner Family; Visit Provider Nurse Practitioner Family
DX: R05.9 Cough, unspecified (principal); J02.9 Acute pharyngitis, unspecified
CPT/HCPCS: 87631

== ENCOUNTER 2025-02-02 11:30 | Outpatient (CLI) | payer MEDICARE, SELFPAY ==
[2025-02-02 13:17] LABS: Microscopic, Urine URINE MICROSCOPIC (MICROSCOPIC)
[2025-02-02 13:32] LABS: Appearance,Urine CLEAR (Clear); Bilirubin,Urine Negative (Negative); Blood, Urine Negative (Negative); Color,Urine YELLOW (Yellow); Glucose,Urine (UA) Negative (Negative); Ketones,Urine Negative (Negative); Leukocyte Esterase,Urine Negative (Negative); Nitrate,Urine Negative (Negative); PH,Urine 6.5 (5.0-8.5); Protein,Urine Negative (Negative); Specific Gravity, Urine 1.015 (1.005-1.030); Urobilinogen,Urine 0.2 EU/dl (0.2)
[2025-02-02 14:09] LABS: Bacteria,Urine Trace /lpf
== END 2025-02-02 23:59 | disposition home or self-care (01) ==
LOC: LAB.DROPOF 02-03 13:45
PROVIDERS: PCP Nurse Practitioner Family; Visit Provider Nurse Practitioner Family
DX: R34 Anuria and oliguria (principal); R39.89 Other symptoms and signs involving the genitourinary system; N39.0 Urinary tract infection, site not specified; B96.1 Klebsiella pneumoniae [K. pneumoniae] as the cause of diseases classified elsewhere
CPT/HCPCS: 81001; 87086; 87088; 87186

== ENCOUNTER 2025-02-08 16:55 | Outpatient (CLI) | payer MEDICARE, SELFPAY ==
[2025-02-08 14:32] LABS: Alanine Aminotransferase 17 U/L (12-78); Albumin Level 4.2 g/dl (3.5-5.0); Albumin/Globulin Ratio 1.6 (1.1-1.8); Alkaline Phosphatase 71 U/L (38-126); Anion Gap 6.7 mEq/L (5-15); Aspartate Amino Transferase 32 U/L (14-36); Bilirubin,Total 0.5 mg/dl (0.2-1.3); Blood Urea Nitrogen 36 mg/dl (7-17); Calcium 9.3 mg/dl (8.4-10.2); Carbon Dioxide 28 mmol/L (22.0-30.0); Chloride 107 mmol/L (98-107); Chol/HDL Ratio 4.5 (1-3.5); Cholesterol 165 mg/dl (140-200); Estimated Glomerular Filt Rate 43 ml/min (>60); GFR (African American) 53 ML/MIN (>60); Globulin 2.7 g/dL (1.3-3.2); Glucose 84 mg/dl (74-100); HDL Cholesterol 37 mg/dl (40-60); Potassium 5.7 mmoL/L (3.5-5.1); Sodium 136 mmol/L (136-145); Total Protein,Serum 6.9 g/dl (6.3-8.2); Triglycerides 277 mg/dl (30-150); VLDL Cholesterol 55 mg/dL (0-40)
[2025-02-08 14:49] LABS: Direct LDL Cholesterol 61.96 mg/dL (100-129)
[2025-02-08 15:59] LABS: Thyroid Stimulating Hormone 2.46 uIU/mL (0.465-4.68)
[2025-02-08 21:09] LABS: HIV Combo NEGATIVE (Negative)
[2025-02-08 21:18] LABS: Hepatitis C Ab Qual. W/ RFX NEGATIVE (Negative)
[2025-02-09 13:11] LABS: Triiodothyronine (T3) Free 2.4 pg/mL (2.0-4.4)
== END 2025-02-08 23:59 | disposition home or self-care (01) ==
LOC: LAB.DROPOF 16:55
PROVIDERS: PCP Nurse Practitioner Family; Visit Provider Nurse Practitioner Family
DX: E03.9 Hypothyroidism, unspecified (principal); E78.5 Hyperlipidemia, unspecified; I10 Essential (primary) hypertension; M19.071 Primary osteoarthritis, right ankle and foot; M19.072 Primary osteoarthritis, left ankle and foot; E55.9 Vitamin D deficiency, unspecified; Z11.59 Encounter for screening for other viral diseases; Z11.4 Encounter for screening for human immunodeficiency virus [HIV]
CPT/HCPCS: 80053; 80061; 82306; 83735; 84443; 84481; 86803; 87389

== ENCOUNTER 2025-02-17 08:26 | Outpatient (CLI) | payer MEDICARE, SELFPAY ==
--- OUTSIDE RECORDS SUMMARY | 2025-02-17 08:28 | XMS_ITS ---
Laboratory report Created on: February 11, 2025 SHAY NUNN : 1945 Sex: Female Author Organization Unknown PROBLEMS Problems List Code Description RESULTS Laboratory Orders Date Order Code Test 2025-02-08 [id number] TRIIODOTHYRONINE (T3), FREE Laboratory Results Date LOINC Test Value Unit Reference Range Interpre tation 2025-02-08 3051-0 TRIIODOTHYRONINE (T3), FREE 2.4 PG/ML 2.0-4.4
--- NOTE | 2025-02-17 08:45 | MR_ITS ---
FINAL REPORT CLINICAL HISTORY: Worsening chronic lower back pain. LOW BACK PAIN. BURNING IN RIGHT LEG COMPARISON: 04/12/2024 FINDINGS: Multiplanar MR imaging of the lumbar spine was performed without contrast. There is magnetic artifact from posterior fusion hardware bridging L3-4 and L4-5. Interbody fusion graft is noted at these levels. The vertebrae are of normal height. There is grade 1 spondylolisthesis of L5 on S1. Posterior laminectomy defect at L4 and L5 with fluid within the laminectomy defect measuring 3.7 cm, similar to the prior study. L1-2: Posterior lateral disc protrusion eccentric to the left. Moderate left neuroforaminal narrowing. L2-3: Mild disc bulge. Mild bilateral neuroforaminal narrowing L3-4: Mild disc bulge. Mild endplate hypertrophy. Mild bilateral neuroforaminal narrowing L4-5: Mild endplate hypertrophy. Mild bilateral neuroforaminal narrowing. L5-S1: Moderate diffuse disc bulge accentuated by spondylolisthesis. Left posterolateral disc protrusion. High-grade left and moderate right neuroforaminal narrowing. High-grade spinal canal compromise well seen on image 23 of series 5 IMPRESSION: High-grade spinal canal compromise and left neuroforaminal narrowing at L5-S1. Stable fluid collection at L4-5, probable seroma. Stable fusion hardware at L3-4 and L4-5. Reviewed, Interpreted and Dictated by Rob Limon MD Transcribed by Ashley Murillo Authenticated and . [facility]
[2025-02-17 15:24] LABS: Alanine Aminotransferase 16 U/L (12-78); Albumin Level 4.2 g/dl (3.5-5.0); Albumin/Globulin Ratio 1.6 (1.1-1.8); Alkaline Phosphatase 69 U/L (38-126); Anion Gap 11.5 mEq/L (5-15); Aspartate Amino Transferase 31 U/L (14-36); Bilirubin,Total 0.4 mg/dl (0.2-1.3); Blood Urea Nitrogen 35 mg/dl (7-17); Calcium 9.1 mg/dl (8.4-10.2); Carbon Dioxide 26 mmol/L (22.0-30.0); Chloride 104 mmol/L (98-107); Estimated Glomerular Filt Rate 48 ml/min (>60); GFR (African American) 58 ML/MIN (>60); Globulin 2.7 g/dL (1.3-3.2); Glucose 82 mg/dl (74-100); Potassium 5.5 mmoL/L (3.5-5.1); Sodium 136 mmol/L (136-145); Total Protein,Serum 6.9 g/dl (6.3-8.2)
== END 2025-02-17 23:59 | disposition home or self-care (01) ==
LOC: RAD 08:27
PROVIDERS: Nurse Practitioner Family; PCP Nurse Practitioner Family; Visit Provider Nurse Practitioner Family
DX: M99.73 Connective tissue and disc stenosis of intervertebral foramina of lumbar region (principal); M25.48 Effusion, other site; M51.16 Intervertebral disc disorders with radiculopathy, lumbar region; Z98.890 Other specified postprocedural states; E87.5 Hyperkalemia; Z98.1 Arthrodesis status
CPT/HCPCS: 72148; 80053

== ENCOUNTER 2025-02-23 09:20 | Outpatient (CLI) | payer MEDICARE, SELFPAY ==
--- NOTE | 2025-02-23 09:30 | XR_ITS ---
FINAL REPORT TECHNIQUE: Bone densitometry calculations of the lumbar spine and left hip were obtained. CLINICAL HISTORY: Screening for osteoporosis COMPARISON: None FINDINGS: Using right forearm, the bone mineral density of the one third is 0.651 g/cm2, corresponding to T-score of -0.7. Using the left hip, the bone mineral density of the femoral neck is 0.931 g/cm2, corresponding to a T-score of -0.1. Using the right hip, the bone mineral density of the femoral neck is 0.853 g/cm?, corresponding to a T-score of 0.0. NOTE: T-score: Standard deviation compared with peak bone mass of young adult mean. *Following the recommendations of the International Society of Bone densitometry, classification of hip BMD is based on the lower of two T-scores; total hip or femoral neck. IMPRESSION: Normal bone mineral density of the lumbar spine and bilateral hips. Reviewed, Interpreted and Dictated by Brian Delcid MD Transcribed by Meme Go Authenticated and [facility]
== END 2025-02-23 23:59 | disposition home or self-care (01) ==
LOC: RAD 09:21
PROVIDERS: PCP Nurse Practitioner Family; Visit Provider Nurse Practitioner Family
DX: Z13.820 Encounter for screening for osteoporosis (principal)
CPT/HCPCS: 77080

== ENCOUNTER 2025-03-28 15:50 | Outpatient (CLI) | payer MEDICARE, SELFPAY ==
[2025-03-28 13:12] LABS: Albumin Level 4.1 g/dl (3.5-5.0); Chloride 101 mmol/L (98-107); Potassium 5.7 mmoL/L (3.5-5.1); Sodium 138 mmol/L (136-145)
[2025-03-28 13:15] LABS: Alanine Aminotransferase 18 U/L (12-78); Albumin/Globulin Ratio 1.2 (1.1-1.8); Alkaline Phosphatase 79 U/L (38-126); Anion Gap 15.7 mEq/L (5-15); Aspartate Amino Transferase 34 U/L (14-36); Bilirubin,Total 0.3 mg/dl (0.2-1.3); Blood Urea Nitrogen 33 mg/dl (7-17); Carbon Dioxide 27 mmol/L (22.0-30.0); Estimated Glomerular Filt Rate 48 ml/min (>60); GFR (African American) 58 ML/MIN (>60); Globulin 3.3 g/dL (1.3-3.2); Total Protein,Serum 7.4 g/dl (6.3-8.2)
[2025-03-28 13:16] LABS: Calcium 9.6 mg/dl (8.4-10.2); Glucose 92 mg/dl (74-100)
--- OUTSIDE RECORDS SUMMARY | 2025-03-28 15:52 | XMS_ITS | Clinical Summary ---
Author Organization [facility] Address [address] [place] [phone] Phone Care Team Providers Care Tipple Repairer Name Role Phone Oly Dotson HUSEYIN Primary Care Provider Allergies Active Allergy Reactions Criticality Noted Date Comments Cefuroxime Axetil Swelling Medium 01/15/2023 Ibuprofen Palpitations Medium 01/15/2023 Medications LEVOthyroxine (SYNTHROID) 25 mcg Oral Tablet Take 25 mcg by mouth daily. Active atenoloL (TENORMIN) 50 mg Oral Tablet Take 25 mg by mouth daily. Active lisinopriL (PRINIVIL;ZESTR IL) 40 mg Oral Tablet Take 40 mg by mouth daily. Active hydroCHLOROthia zide (HYDRODIURIL) 25 mg Oral Tablet Take 25 mg by mouth 2 times daily. Active polyethylene glycol (GLYCOLAX) 17 gram/dose Oral PowderIndicatio ns:Exposure of implanted vaginal mesh, initial encounter,Urina tion frequency Begin Miralax, 17 g (1 capful) mixed in your favorite drink once a day beginning 1 week prior to surgery, after surgery drink this twice a day for 2 weeks 595 g Active Additional Information Patient not taking.Reason: Therapy Completed, Reported on 04/27/2024 aspirin 81 mg Oral Tablet, Delayed Release (E.C.) Take 81 mg by mouth two times a week on Friday and Friday. Active fluticasone propionate (FLONASE) 50 mcg/actuation Nasl [place], Suspension 50 Sprays as needed. 3 Active rosuvastatin (CRESTOR) 20 mg Oral Tablet Take 20 mg by mouth daily. Active lisinopriL (PRINIVIL;ZESTR IL) 40 mg Oral Tablet Take 40 mg by mouth daily. Active LEVOthyroxine 25 mcg Oral Capsule Take by mouth. Activ e traMADoL (ULTRAM) 50 mg Oral Tablet Take 1 Tablet by mouth every 6 hours as needed. 10 Tablet 3 Active docusate sodium (COLACE) 100 mg Oral Capsule Take 1 Capsule by mouth 2 times daily. 60 Capsule 2 3 Active Additional Information Patient not taking.Reason: Therapy Completed, Reported on 09/14/2024 ondansetron (ZOFRAN-ODT) 4 mg Oral Tablet, Rapid Dissolve Take 1 Tablet by mouth every 6 hours as needed for Nausea. 30 Tablet 3 Active senna (SENOKOT) 8.6 mg Oral Tablet Take 1 Tablet by mouth daily as needed for Constipation. 30 Tablet 1 3 Active metoprolol (LOPRESSOR) 50 mg Oral Tablet Take by mouth. Active estradioL (ESTRACE) 0.01 % (0.1 mg/gram) Vagl CreamIndication s:Vaginal atrophy Place 1 g vaginally nightly. Insert 1 g amount using fingertip into the vagina nightly 42.5 g 3 4 Active Active Problems Problem Noted Date Diagnosed Date Urination frequency 01/24/2023 Overview (01/24/2023): Added automatically from request for surgery [id number] Resolved Problems Problem Noted Date Diagnosed Date Resolved Date Exposure of implanted vaginal mesh 01/15/2023 04/02/2023 Surgical History Surgery Date Site/Laterality Comments HYSTERECTOMY BACK SURGERY GALLBLADDER SURGERY NOSE SURGERY CHOLECYSTECTOMY COLONOSCOPY CYSTOSCOPY 03/20/2023 N/A .; Surgeon: Katharina Jacques MD; Location: [facility] MAIN OR; Service: Gynecology Medical devices from this surgery are in the Medical Devices section. Medical History Medical History Date Comments Hypertension Hyperlipidemia Heartburn Arthritis Urinary incontinence Thyroid disease Cancer (HCC) Nose left side Anesthesia complication Pt. stat es received anesthesia 40 years ago that was a severe reaction and was placed in the hospital for one week. Pt. states has had surgery after and did not have any further complications. Family History Medical History Relation Name Comments No Known Problems Father No Known Problems Mother Relation Name Status Comments Father Alive Mother Alive Social History Tobacco Use Types Packs/Day Years Used Date Smoking Tobacco: Former Cigarettes Smokeless Tobacco: Never Tobacco Cessation:Counseling Given: Not Answered Alcohol Use Standard Drinks/Week Comments Not Currently 0 (1 standard drink = 0.6 oz pur e alcohol) Comments No Sex and Gender Information Value Date Recorded Sex Assigned at Not on file Legal Sex Female 10:43 AM EST Gender Identity Not on file Sexual Orientation Not on file Obstetrics History Last Filed Vital Signs Vital Sign Reading Time Taken Comments Blood Pressure 174/78 06/12/2023 1:53 PM EDT Pulse 98 09/14/2024 10:55 AM EST Temperature 36.3 C (97.3 F) 03/20/2023 5:05 PM EDT Respiratory Rate 16 03/20/2023 5:05 PM EDT Oxygen Saturation 98% 09/14/2024 10:55 AM EST Inhaled Oxygen Concentration - - Weight 69.7 kg (153 lb 9.6 oz) 09/14/2024 10:55 AM EST Height 157.5 cm (5' 2 ) 04/27/2024 9:07 AM EDT Body Mass Index 28.09 04/27/2024 9:07 AM EDT Plan of Treatment Health Maintenance Due Date Last Done Comments Wellness Exam Medicare 1948 Hepatitis C Screening 1964 DTaP/TDaP/Td (1 - Tdap) 1965 Hepatitis B Vaccine (2 of 3 - 19+ 3-dose series) 03/26/1996 02/27/1996 Pneumococcal Vaccine 50+ (1 of 1 - PCV) 1996 Zoster (1 of 2) 1996 Bone Density Screening 2011 RSV or 60+ (1 - 1-dose 75+ series) 2021 COVID-19 Vaccine ( season) 2024 09/08/2023, 07/31/2022, 04/17/2022, Additional history exists Influenza Vaccine (Season Ended) 2025 07/14/2023, 06/26/2016 Meningococcal B Vaccine Aged Out No l onger eligible based on patient's age to complete this topic Medical Devices Implanted Type Area Dairy Technician Device Identifier Shelf Expiration Date Model / Serial / Lot Graft Allograft 4x6cm Dcellztn Dermapure Derm Hum Tis - [id number] Implanted:Qty: 1 on 03/20/2023 by Katharina Jacques MD at [facility] N/A: Bladder TRX BIOSURGERY 08/08/2024 [id number] / [id number] / [id number] Insurance HU[employer]NA MEDICARE PPO MR HU[employer] MEDICARE PPO MR Care Teams Tipple Repairer Relationship Specialty Start Date End Date Oly Dotson APRN [address] [place] [id number] PCP - General Nurse Practitioner-Family 03/13/23
--- OUTSIDE RECORDS SUMMARY | 2025-03-28 15:52 | XMS_ITS | Clinical Summary ---
Author Organization [facility] Address [address] [place] [address] Care Team Providers Care Mains And Service Supervisor Name Role Phone Oly Dotson APRN Primary Care Provider [phone] Allergies Active Allergy Reactions Criticality Noted Date Comments Cefuroxime Swelling,Rash High 07/17/2021 Ibuprofen Palpitations Low 08/05/2016 Heart to beat too fast Medications aspirin 81 MG EC tablet Take 81 mg by mouth 1 (one) time each day. Active rosuvastatin (Crestor) 20 MG tablet Take 20 mg by mouth 1 (one) time each day. Active metoprolol tartrate (Lopressor) 50 MG tablet Take by mouth 2 (two) times a day. Active lisinopril 40 MG tablet Take 40 mg by mouth 1 (one) time each day. Active levothyroxine (Tirosint) 25 MCG capsule Take by mouth 1 (one) time each day before breakfast. Active atenolol (Tenormin) 50 MG tablet Take by mouth 1 (one) time each day. Active gabapentin (Neurontin) 100 MG capsule Take 100 mg by mouth. 2 caps bid Active hydroCHLOROthiaz vianca (HYDRODiuril) 25 MG tablet Take 25 mg by mouth 1 (one) time each day. Active traMADol (Ultram) 50 MG tablet Take by mouth. Active atorvastatin (Lipitor) 40 MG tablet Take 40 mg by mouth 1 (one) time each day. Active febuxostat (Uloric) 40 MG tablet Take by mouth. Active Probiotic Product (PROBIOTIC DAILY PO) Take by mouth. Active Psyllium (METAMUCIL PO) Take by mouth. Active Active Problems Problem Noted Date Diagnosed Date Hypertension 07/17/2021 Family History Medical History Relation Name Comments Heart disease Father Hyperlipidemia Father Hypertension Father Kidney disease Father Osteoporosis Father Stroke Father Cancer Mother Heart disease Mother Hyperlipidemia Mother Hypertension Mother Liver cancer Mother Osteoporosis Mother Relation Name Status Comments Father Alive Mother Social History Tobacco Use Types Packs/Day Years Used Date Smoking Tobacco: Never Smokeless Tobacco: Never Alcohol Use Standard Drinks/Week Comments Never 0 (1 standard drink = 0.6 oz pur e alcohol) Comments Unknown Sex and Gender Information Value Date Recorded Sex Assigned at Not on file Legal Sex Female 7:50 PM EDT Gender Identity Not on file Sexual Orientation Not on file Last Filed Vital Signs Vital Sign Reading Time Taken Comments Blood Pressure 171/48 02/04/2022 1:10 PM EDT Pulse 50 02/04/2022 1:10 PM EDT Temperature - - Respiratory Rate - - Oxygen Saturation - - Inhaled Oxygen Concentration - - Weight 68.5 kg (151 lb) 02/04/2022 1:10 PM EDT Height - - Body Mass Index - - Plan of Treatment Health Maintenance Due Date Last Done Comments [facility]-Bone Density Scan 1945 [facility]-Depression Screening 1945 [facility]-Hepatitis C Screening 1945 [facility]-Medicare Annual Wellness (AWV) 1945 [facility]-/Child/Adol SDOH Screenings 1945 [facility]- SDOH Screenings 1964 [facility]-Adult SDOH Screenings 1964 [facility]-DTaP,Tdap,and Td Vaccines (1 - Tdap) 1965 [facility]-Pneumococcal Vaccine: 50+ Years (1 of 1 - PCV) 1996 [facility]-Zoster Vaccines (1 of 2) 1996 [facility]-RSV Vaccine: 60+ Years or (1 - 1-dose 75+ series) 2021 [id number] Vaccine ( - season) 2024 08/17/2021, 11/14/2020, 10/13/2020 [facility]-Influenza Vaccine (Season Ended) 2025 HPV Vaccines Aged Out No longer eligi ble based on patient's age to complete this topic [facility]-HIB Vaccines Aged Out No longer e ligible based on patient's age to complete this topic [facility]-Hepatitis A Vaccines Aged Out No longer eligible based on patient's age to complete this topic [facility]-IPV Vaccines Aged Out No longer e ligible based on patient's age to complete this topic [facility]-Rotavirus Vaccines Aged Out No lo nger eligible based on patient's age to complete this topic Insurance [facility] MEDICARE Care Teams Mains And Service Supervisor Relationship Specialty Start Date End Date Oly Dotson APRN [address] [place] [address] PCP - General 07/23/21
== END 2025-03-28 23:59 | disposition home or self-care (01) ==
LOC: LAB.DROPOF 15:50
PROVIDERS: PCP Nurse Practitioner Family; Visit Provider Nurse Practitioner Family
DX: E87.5 Hyperkalemia (principal)
CPT/HCPCS: 80053

== ENCOUNTER 2025-04-19 15:12 | Outpatient (CLI) | payer MEDICARE, SELFPAY ==
[2025-04-19 14:48] LABS: Alanine Aminotransferase 17 U/L (12-78); Albumin Level 4.3 g/dl (3.5-5.0); Albumin/Globulin Ratio 1.5 (1.1-1.8); Alkaline Phosphatase 67 U/L (38-126); Anion Gap 19.1 mEq/L (5-15); Aspartate Amino Transferase 34 U/L (14-36); Bilirubin,Total 0.4 mg/dl (0.2-1.3); Blood Urea Nitrogen 29 mg/dl (7-17); Calcium 9.9 mg/dl (8.4-10.2); Carbon Dioxide 25 mmol/L (22.0-30.0); Chloride 99 mmol/L (98-107); Creatinine,Serum 1.00 mg/dl (0.52-1.04); Estimated Glomerular Filt Rate 54 ml/min (>60); GFR (African American) 65 ML/MIN (>60); Globulin 2.9 g/dL (1.3-3.2); Glucose 87 mg/dl (74-100); Potassium 5.1 mmoL/L (3.5-5.1); Sodium 138 mmol/L (136-145); Total Protein,Serum 7.2 g/dl (6.3-8.2)
--- OUTSIDE RECORDS SUMMARY | 2025-04-19 15:14 | XMS_ITS | Clinical Summary ---
Author Organization [facility] Address [address] [place] [phone] Phone Care Team Providers Care Single Fold Machine Operator Name Role Phone Oly Dotson HUSEYIN Primary [...] Active fluticasone propionate (FLONASE) 50 mcg/actuation Nasl [place], Suspension 50 Sprays as needed. 3 Active [...] (01/24/2023): Added automatically from request for surgery [id number] Resolved Problems Problem Noted Date Diagnosed Date [...] 07/31/2022, 04/17/2022, Additional history exists Influenza Vaccine (#1) 2025 07/14/2023, 2015 Meningococcal B Vaccine Aged Out No l onger eligible based on patient's age to complete this topic Medical Devices Implanted Type Area Correctional Food Service Supervisor Device Identifier Shelf Expiration Date Model / Serial / Lot Graft Allograft 4x6cm Dcellztn Dermapure Derm Hum Tis - [id number] Implanted:Qty: 1 on 03/20/2023 by Katharina Jacques MD at [facility] N/A: Bladder TRX BIOSURGERY 08/08/2024 [id number] / [id number] 18 / [id number] Insurance [employer] MEDICARE PPO MR [employer] MEDICARE PPO MR Care Teams Single Fold Machine Operator Relationship Specialty Start Date End Date Oly Dotson APRN [address] [place] [id number] PCP - General Nurse Practitioner-Family 03/13/23
--- OUTSIDE RECORDS SUMMARY | 2025-04-19 15:14 | XMS_ITS | Clinical Summary ---
Author Organization [facility] Address [address] [place] [address] Care Team Providers Care Cancellation Clerk Name Role Phone Oly Dotson APRN Primary Care Provider [phone] Allergies Active Allergy Reactions Criticality Noted Date [...] or (1 - 1-dose 75+ series) 2021 APS-EYDPQ-14 Vaccine ( - 2023- season) 2024 08/17/2021, 11/14/2020, 10/13/2020 UKY-Influenza Vaccine (#1) 2025 HPV Vaccines Aged Out No longer [...] patient's age to complete this topic Insurance [facility] MEDICARE Care Teams Cancellation Clerk Relationship Specialty Start Date End Date Oly Dotson APRN [address] [place] [address] PCP - General 07/23/21
== END 2025-04-19 23:59 | disposition home or self-care (01) ==
LOC: LAB.DROPOF 15:12
PROVIDERS: PCP Nurse Practitioner Family; Visit Provider Nurse Practitioner Family
DX: E87.5 Hyperkalemia (principal)
CPT/HCPCS: 80053

== ENCOUNTER 2025-07-05 10:55 | Outpatient (CLI) | payer MEDICARE, SELFPAY ==
--- NOTE | 2025-07-05 11:00 | MM_ITS ---
PROCEDURE INFORMATION: Exam: MG Bilateral Screening 3D Mammography Exam date and time: 07/05/2025 11:01 AM Age: 79 years old Clinical indication: Screening exam. TECHNIQUE: Imaging protocol: Bilateral Screening tomosynthesis and 2D mammography including computer-aided detection (CAD) when performed. COMPARISON: 1. MG MM DIG SCREENING MAMM BI W/CAD 06/03/2024 10:16 AM 2. MG MM DIG SCREENING MAMM BI W/CAD 05/09/2023 10:48 AM FINDINGS: MAMMOGRAPHY: Breast composition: There are scattered areas of fibroglandular density. Mass: No suspicious masses. Architectural distortion: None. Calcifications: No suspicious calcifications. Asymmetric density: None. Skin thickening: None. Axillary adenopathy: None. IMPRESSION: No mammographic evidence of malignancy. Annual screening is recommended unless otherwise clinically indicated. ASSESSMENT: BI-RADS Category 1: Negative.
--- OUTSIDE RECORDS SUMMARY | 2025-07-05 11:00 | XMS_ITS | Clinical Summary ---
Author Organization [facility] Address [address] [place] [address] Care Team Providers Care Paste Up Copy Camera Operator Name Role Phone Oly Dotson APRN Primary Care Provider [phone] Allergies Active Allergy Reactions Criticality Noted Date Comments Cefuroxime Axetil 08/05/2016 Yeast infection Ibuprofen Palpitations Medium 08/05/2016 Heart to beat too fast Medications atorvastatin (LIPITOR) 40 MG tablet Take 1 tablet by mouth Daily. Active Probiotic Product (PROBIOTIC DAILY PO) Take 1 tablet by mouth Daily. Active aspirin 81 MG EC tablet Take 1 tablet by mouth Daily. Active cyclobenzaprine (FLEXERIL) 10 MG tablet 1 tablet. 03/23/2024 Active levocetirizine (XYZAL) 5 MG tablet 02/23/2024 Active metoprolol succinate XL (TOPROL-XL) 50 MG 24 hr tablet 03/03/2024 Act aurora rosuvastatin (CRESTOR) 20 MG tablet Take 1 tablet by mouth Daily. Active estradiol (ESTRACE) 0.1 MG/GM vaginal cream Insert 1 g into the vagina. 04/27/2024 Active hydroCHLOROthiaz vianca 25 MG tablet 04/01/2024 Ac tive lisinopril (PRINIVIL,ZESTRI L) 40 MG tablet 04/28/2024 Act aurora traMADol (ULTRAM) 50 MG tablet 05/11/2024 Active oseltamivir (TAMIFLU) 75 MG capsule 1 capsule. 12/08/2024 Active Vitamin D, Cholecalciferol, (CHOLECALCIFEROL ) 10 MCG (400 UNIT) tablet Take 1 tablet by mouth Daily. Active Active Problems Problem Noted Date Diagnosed Date Lumbar stenosis with neurogenic claudication 02/2016 Family History Medical History Relation Name Comments Heart disease Brother Cancer Mother Cancer Sister Relation Name Status Comments Brother Mother Sister Social History Tobacco Use Types Packs/Day Years Used Date Smoking Tobacco: Never Passive Smoke Exposure: Past Smokeless Tobacco: Never Tobacco Cessation:Counseling Given: Yes Alcohol Use Standard Drinks/Week Comments No 0 (1 standard drink = 0.6 oz pur e alcohol) Comments No Sex and Gender Information Value Date Recorded Sex Assigned at Not on file Legal Sex Female 12:48 PM EDT Gender Identity Not on file Sexual Orientation Not on file Last Filed Vital Signs Vital Sign Reading Time Taken Comments Blood Pressure 128/64 05/14/2024 10:57 AM EDT Pulse 61 05/22/2021 9:26 AM EDT Temperature 36.7 C (98 F) 03/09/2025 11:49 AM EDT Respiratory Rate 16 05/22/2021 9:26 AM EDT Oxygen Saturation 99% 05/22/2021 9:26 AM EDT Inhaled Oxygen Concentration - - Weight 70.8 kg (156 lb) 03/09/2025 11:49 AM EDT Height 157.5 cm (5' 2 ) 03/09/2025 11:49 AM EDT Body Mass Index 28.53 03/09/2025 11:49 AM EDT Plan of Treatment Health Maintenance Due Date Last Done Comments DXA SCAN 1945 TDAP/TD VACCINES (1 - Tdap) 1965 COLOGUARD 1991 COLON CANCER SCREENING 5 YEA R SIGMOIDOSCOPY 1991 COLONOSCOPY 1991 [address] CANCER SCREENING 1991 CT COLONOGRAPHY 1991 FECAL OCCULT BLOOD TEST 1991 FIT Testing (1 year) 1991 Pneumococcal Vaccine 50+ (1 of 1 - PCV) 1996 ZOSTER VACCINE (1 of 2) 1996 ANNUAL WELLNESS VISIT 01/22/2017 HEPATITIS C SCREENING 01/22/2017 RSV Vaccine - Adults (1 - 1- dose 75+ series) 2021 INFLUENZA VACCINE 05/06/2025 07/14/2023, 06/26/2016 COVID-19 Vaccine (6 - 2024-2 6 season) 2025 07/31/2022, 04/17/2022, 08/17/2021, Additional history exists Medical Devices Implanted Type Area Marketing Database Analyst Device Identifier Shelf Expiration Date Model / Serial / Lot Orthoblend Dbm [place] 10cc Sm - [id number] Implanted:Qty: 1 on 09/09/2016 by Juan Rosa MD at [facility] Implant MEDTRONIC [id number] / / NA Hesham Peek 6.60a75ej - [id number] Implanted:Qty: 1 on 09/09/2016 by Juan Rosa MD at [facility] Implant MEDTRONIC 12/27/2020 [id number] / / Duralmatrix Duragen Pls 2x2in 5pk - [id number] Implanted:Qty: 1 on 09/09/2016 by Juan Rosa MD at [facility] Implant INTEGRA [id number] / / [id number] Scrw Cdh Legacy Mas Peek 6.5x45mm - [id number] Implanted:Qty: 2 on 09/09/2016 by Juan Rosa MD at [facility] Implant MEDTRONIC [id number] / / Scrw Cdh Legacy Mas Peek 6.5x50mm - [id number] Implanted:Qty: 4 on 09/09/2016 by Juan Rosa MD at [facility] Implant [employer]TR[employer]IC [id number] / / Scrw Peek Ext Or Extrnl Hex - [id number] Implanted:Qty: 6 on 09/09/2016 by Juan Rosa MD at [facility] Implant [employer]IC [id number] / / Spacr Vbs Capstone Vertestack/Sm 70j50it - [id number] Implanted:Qty: 1 on 09/09/2016 by Juan Rosa MD at [facility] Implant [employer] 06/19/2024 [id number] / / Spacr Vbs Capstone Vertestack/Sm 56o51pk - [id number] Implanted:Qty: 1 on 09/09/2016 by Juan Rosa MD at [facility] Implant [employer]TR[employer] 06/19/2024 [id number] / / Hesham Peek 6.21c69dj - [id number] Implanted:Qty: 1 on 09/09/2016 by Juan Rosa MD at [facility] Implant [employer]TRONIC 01/22/2021 [id number] / / Sys Sealant Durl Duraseal - [id number] Implanted:Qty: 1 on 09/09/2016 by Juan Rosa MD at [facility] Implant CONFLUENT [employer]GICAL [id number] / / Insurance [facility] Medicare Advantage GROUP PPO Advance Directives * Full Code (Latest Code Status on File) Date Activated Date Inactivated Comments 09/09/2016 6:32 PM 09/15/2016 3:02 PM Care Teams Paste Up Copy Camera Operator Relationship Specialty Start Date End Date Oly Dotson APRN [address] [place] [address] [facility] [address] PCP - General Internal Medicine 09/10/23
--- OUTSIDE RECORDS SUMMARY | 2025-07-05 11:00 | XMS_ITS | Clinical Summary ---
Author Organization [facility] Address [address] [place] [address] Care Team Providers Care Hospital Technician Name Role Phone Oly Dotson APRN Primary Care Provider [phone] Allergies Active Allergy Reactions Criticality Noted Date [...] or (1 - 1-dose 75+ series) 2021 [id number]-34 Vaccine ( - 2024- season) 2025 08/17/2021, 11/14/2020, 10/13/2020 UKY-Influenza Vaccine (#1) 2025 [...] patient's age to complete this topic Insurance [facility] MEDICARE Care Teams Hospital Technician Relationship Specialty Start Date End Date Oly Dotson APRN [address] [place] [address] PCP - General 07/23/21
--- OUTSIDE RECORDS SUMMARY | 2025-07-05 11:01 | XMS_ITS | Clinical Summary ---
Author Organization [facility] Address [address] [place] [phone] Phone Care Team Providers Care Oxidation Engineer Name Role Phone Oly Dotson HUSEYIN Primary [...] Active fluticasone propionate (FLONASE) 50 mcg/actuation Nasl [place], Suspension 50 Sprays as needed. 3 Active [...] (01/24/2023): Added automatically from request for surgery [id number] Resolved Problems Problem Noted Date Diagnosed Date [...] - 1-dose 75+ series) 2021 COVID-19 Vaccine (2024- season) 2025 09/08/2023, 07/31/2022, 04/17/2022, Additional history exists Influenza Vaccine (#1) 2025 07/14/2023, 2015 Meningococcal B Vaccine Aged Out No l onger eligible based on patient's age to complete this topic Medical Devices Implanted Type Area Currency Counter Device Identifier Shelf Expiration Date Model / Serial / Lot Graft Allograft 4x6cm Dcellztn Dermapure Derm Hum Tis - [id number] Implanted:Qty: 1 on 03/20/2023 by Katharina Jacques MD at [facility] N/A: Bladder TRX BIOSURGERY 08/08/2024 [id number] / [id number] / [id number] Insurance [employer] MEDICARE PPO MR [employer] MEDICARE PPO MR Care Teams Oxidation Engineer Relationship Specialty Start Date End Date Oly Dotson APRN [address] [place] [place] [id number] PCP - General Nurse Practitioner-Family 03/13/23
== END 2025-07-05 23:59 | disposition home or self-care (01) ==
LOC: RAD 10:56
PROVIDERS: PCP Nurse Practitioner Family; Visit Provider Nurse Practitioner Family
DX: Z12.31 Encounter for screening mammogram for malignant neoplasm of breast (principal); R92.323 Mammographic fibroglandular density, bilateral breasts
CPT/HCPCS: 77063; 77067

== ENCOUNTER 2025-08-12 14:46 | Outpatient (CLI) | payer MEDICARE, SELFPAY ==
--- NOTE | 2025-08-12 14:48 | XR_ITS ---
FINAL REPORT CLINICAL HISTORY: bilateral shoulder pain x 7 days FINDINGS: LEFT SHOULDER Three views were obtained. There is no fracture or dislocation. There is mild narrowing of the AC and glenohumeral joints. No soft tissue abnormality is identified. IMPRESSION: Mild changes of osteoarthritis. Reviewed, Interpreted and Dictated by Rob Limon MD Transcribed by Rosy Wen Authenticated and . [facility]
--- NOTE | 2025-08-12 14:48 | XR_ITS ---
FINAL REPORT CLINICAL HISTORY: bilateral shoulder pain x 7 days FINDINGS: RIGHT SHOULDER Three views were obtained. There is no fracture or dislocation. There is mild narrowing of the AC and glenohumeral joints. No soft tissue abnormality is identified. IMPRESSION: Mild changes of osteoarthritis. Reviewed, Interpreted and Dictated by Rob Limon MD Transcribed by Rosy Wen Authenticated and [facility]
--- OUTSIDE RECORDS SUMMARY | 2025-08-12 14:48 | XMS_ITS ---
Author Organization [facility] Address [address] [place] [phone] Phone Care Team Providers Care Stitcher Special Machine Name Role Phone Denver CAMPOS, Masood Unavailable [phone] Plan of Treatment No Plan of Treatment Recorded Assessments Includes: Assessments for all patient encounters No Assessments Recorded Medical Equipment - Implanted Devices Includes: Current and historical Devices No Medical Equipment Recorded Medications Administered Includes: Administered Medications in patient's chart No Administered Medications Recorded Results Includes: Results from 08/12/2024 through 08/12/2025 No Results Recorded For Specified Dates History of Present Illness History of Present Illness not supported for this document type No History of Present Illness Recorded Social History No Social History Recorded - Smoking Status Unknown Medical History Includes: Medical History in patient's chart No Medical History Recorded Family History Includes: Family History in patient's chart No Family History Recorded Review of Systems Review of Systems not supported for this document type No Review of Systems Recorded Mental Status No Mental Status Recorded Functional Status No Functional Status Recorded Physical Exam Physical Exam not supported for this document type No Physical Exam Recorded Insurance Includes: Active Insurance Policies Plan Name Member ID Group # Subscriber Relationship Effect aurora Dates 1 - [employer]ICARE [id number] Chrissy Estse Self Clinical Notes Includes: Signed Clinical Notes starting from 09/19/2022 No Clinical Notes Recorded
--- OUTSIDE RECORDS SUMMARY | 2025-08-12 14:48 | XMS_ITS ---
Care Plan - [facility], [facility] Created on: August 12, 2025 Chrissy : 1945 Sex: Female Author Organization [facility] Address [address] [place] [phone] Phone Care Team Providers Care Service Director Name Role Phone Denver CAMPOS, Masood Unavailable [phone]
--- OUTSIDE RECORDS SUMMARY | 2025-08-12 14:48 | XMS_ITS | Clinical Summary ---
Author Organization [facility] Address [address] [place] [address] Care Team Providers Care Die Maker Bench Stamping Name Role Phone Oly Dotson APRN Primary Care Provider [phone] Allergies Active Allergy Reactions Criticality Noted Date [...] INFLUENZA VACCINE 05/06/2025 07/14/2023, 06/26/2016 COVID-19 Vaccine (4 - 2024-2 6 season) 2025 07/31/2022, 04/17/2022, 08/17/2021, Additional history exists Medical Devices Implanted Type Area Etl Analyst Developer Device Identifier Shelf Expiration Date Model / Serial / Lot Orthoblend Dbm [place] 10cc Sm - [id number] Implanted:Qty: 1 on 09/09/2016 by Juan Rosa MD at [facility] Implant [employer] [id number] / / NA Hesham Peek 6.00s78yp - [id number] Implanted:Qty: 1 on 09/09/2016 by Juan Rosa MD at [facility] Implant [employer] 12/27/2020 [id number] / / Duralmatrix Duragen Pls 2x2in 5pk - [id number] Implanted:Qty: 1 on 09/09/2016 by Juan Rosa MD at [facility] Implant INTEGRA [id number] / / [id number] Scrw Cdh Legacy Mas Peek 6.5x45mm - [id number] Implanted:Qty: 2 on 09/09/2016 by Juan Rosa MD at [facility] Implant [employer] [id number] / / Scrw Cdh Legacy Mas Peek 6.5x50mm - [id number] Implanted:Qty: 4 on 09/09/2016 by Juan Rosa MD at [facility] Implant [employer] [id number] / / Scrw Peek Ext Or Extrnl Hex - [id number] Implanted:Qty: 6 on 09/09/2016 by Juan Rosa MD at [facility] Implant [employer] [id number] / / Spacr Vbs Capstone Vertestack/Sm 20z01ns - [id number] Implanted:Qty: 1 on 09/09/2016 by Juan Rosa MD at [facility] Implant [employer] 06/19/2024 [id number] / / Spacr Vbs Capstone Vertestack/Sm 09m75kg - [id number] Implanted:Qty: 1 on 09/09/2016 by Juan Rosa MD at [facility] Implant [employer] 06/19/2024 [id number] / / Hesham Peek 6.39o70qt - [id number] Implanted:Qty: 1 on 09/09/2016 by Juan Rosa MD at [facility] Implant [employer] 01/22/2021 [id number] / / Sys Sealant Durl Duraseal - [id number] Implanted:Qty: 1 on 09/09/2016 by Juan Rosa MD at [facility] Implant [employer] [id number] / / Insurance [facility] Medicare Advantage GROUP PPO Advance Directives * Full Code (Latest Code Status on File) Date Activated Date Inactivated Comments 09/09/2016 6:32 PM 09/15/2016 3:02 PM Care Teams Die Maker Bench Stamping Relationship Specialty Start Date End Date Oly Dotson APRN [address] [place] [address] [place] [place] [address] PCP - General Internal Medicine 09/10/23
--- OUTSIDE RECORDS SUMMARY | 2025-08-12 14:48 | XMS_ITS | Clinical Summary ---
Author Organization [facility] Address [address] [place] [phone] Phone Care Team Providers Care Design Transferrer Name Role Phone Oly Dotson HUSEYIN Primary [...] Active fluticasone propionate (FLONASE) 50 mcg/actuation Nasl [place], Suspension 50 Sprays as needed. 3 Active [...] (01/24/2023): Added automatically from request for surgery [id number] Resolved Problems Problem Noted Date Diagnosed Date [...] this topic Medical Devices Implanted Type Area Housing Officer Device Identifier Shelf Expiration Date Model / Serial / Lot Graft Allograft 4x6cm Dcellztn Dermapure Derm Hum Tis - [id number] Implanted:Qty: 1 on 03/20/2023 by Katharina Jacques MD at [facility] N/A: Bladder TRX BIOSURGERY 08/08/2024 [id number] / [id number] 18 / [id number] Insurance [employer] MEDICARE PPO MR [employer] MEDICARE PPO MR Care Teams Design Transferrer Relationship Specialty Start Date End Date Oly Dotson APRN [address] [place] [id number] PCP - General Nurse Practitioner-Family 03/13/23
--- OUTSIDE RECORDS SUMMARY | 2025-08-12 14:48 | XMS_ITS | Clinical Summary ---
Author Organization [facility] Address [address] [place] [address] Care Team Providers Care Corporate Communications Manager Name Role Phone Oly Dotson APRN Primary Care Provider [phone] Allergies Active Allergy Reactions Criticality Noted Date [...] or (1 - 1-dose 75+ series) 2021 [id number] Vaccine ( - 2024- season) 2025 08/17/2021, [...] patient's age to complete this topic Insurance [facility] MEDICARE Care Teams Corporate Communications Manager Relationship Specialty Start Date End Date Oly Dotson APRN [address] [place] [address] PCP - General 07/23/21
== END 2025-08-12 23:59 ==
LOC: RAD 14:47
PROVIDERS: PCP Nurse Practitioner Family; Visit Provider Nurse Practitioner Family
DX: M19.012 Primary osteoarthritis, left shoulder (principal); M19.011 Primary osteoarthritis, right shoulder
CPT/HCPCS: 73030